=== PATIENT | male | born 2000 ===

== ENCOUNTER 2024-11-25 18:44 | Outpatient (BNV) | payer MEDICAID, SELFPAY | END 2024-12-04 08:00 | PROVIDERS: Admitting Provider Psychiatry & Neurology Psychiatry; Visit Provider Internal Medicine | DX: I45.4 Nonspecific intraventricular block (principal); R00.0 Tachycardia, unspecified | CPT/HCPCS: 93010 ==

== ENCOUNTER 2024-11-25 18:44 | Inpatient (IN) | payer OTHER, SELFPAY ==
[2024-11-25 19:34] VITALS: BP 136/81; PULSE 106; RESP 16; TEMP 37.2; O2SAT 93
--- NOTE | 2024-11-25 19:35 | PC.NURSE ---
Pt arrived on the unit at 1908 on a 12B, via stretcher. VSS, change management director done, and pt shown unit and given toiletries. Complete admission note to follow.
[2024-11-25] MEDS: traZODone HCL 50 MG TABLET PO (21:07)
[2024-11-25] MEDS: hydrOXYzine HCL 25 MG TABLET PO (21:07)
--- NOTE | 2024-11-25 22:19 | P.CONHOSP_ITS ---
History of Present Illness Data of Consult Service Date: 11/25/24 Requesting physician: Negro Strange Primary Care Provider: Unknown Physician HPI Reason for consult: Medical H/P Patient is a 24-year-old male with past medical history Bipolar II, ADHD, Autism Spectrum Disorder, acne, methamphetamine addiction with previous IV injection causing severe tachycardia and palpitations requiring hospitalization, childhood asthma, vapes nicotine, wisdom teeth removal, chronic habitual picking of his skin is being seen on M5 for medical H and P for admission. Patient offers no specific medical concerns at this time. Patient is currently working for a food truck and was attending his 1st few days of class at [facility] [facility]. Patient reports that he was taking his brother's Adderall and his mother's of Vyvanse and was transferred from a previous hospital to [facility] for further evaluation. Patient denies any issues with chest pain, shortness of breath at rest or with exertion, abdominal pain, nausea, vomiting, diarrhea or constipation. Patient is not having any flu-like symptoms. Patient denies any fever or chills. Review of Systems Review of Systems: Patient denies any chest pain, shortness of breath at rest or exertion, abdominal pain, nausea, vomiting, diarrhea or constipation. Patient reports vaping nicotine but denies need for nicotine replacement therapy. Patient denies any history of liver problems, alcohol use or illicit drug use. Patient states he was using methamphetamine IV. Patient required hospitalization at that time for palpitations and fast heart rate. Patient denies any issues with burning or pain on urination or STD symptoms. Yes all other systems are reviewed and are negative [facility] Medical History (Updated 11/25/24 @ 22:27 by REYNA David) Autism spectrum disorder Bipolar 2 disorder ADHD Asthma Cognitive capacity: Alert and orientated x3 Functional capacity: independent ambulation Pertinent family history: Mother: No current health problems on Vyvanse Surgical History [place] teeth removed Social History Household Members: Family Housing: House Do you presently have visiting nurse or other home services: No Patient Tobacco Use Status: Current everyday Tobacco user Tobacco use type: Cigarette Smoked in Last 30 Days: Yes e-Cigarette/Vaping Use: Currently Using Patient Interested in Nicotine Replacement: No Second Hand Smoke Exposure: No Have you been hit, kicked, punched, or otherwise hurt by someone within the past year? If so, by whom?: No Do you feel safe in your current relationship?: No Current Relationship Is there a partner from a previous relationship who is making you feel unsafe now?: No Are you made to feel afraid or neglected: No Advance Directives: No Advance Directives Information Provided: No Do you have a plan to hurt others: No Plan Recently lost weight without trying: Yes Eating poorly because of decreased appetite: No Nutrition Risks: No Nutritional Risk Ebola Risk: Travel/Contact With Anyone From Affected Area/s: No Has Patient Experienced Ebola Symptoms: No Meds Allergies Allergy/AdvReac Type Severity Reaction Status Date / Time No Known Allergies Allergy Verified 11/25/24 19:43 Active Medications: Current Medications Acetaminophen (Acetaminophen 325 Mg Tablet) 650 mg PO Q6H PRN PRN Reason: Headache/Pain, Scale 1-10 Al Hydroxide/Mg Hydroxide (Magnesium Hydrox/Alum Hydrox 30 Ml Oral.Susp) 30 ml PO Q6H PRN PRN Reason: Heartburn/Nausea Hydroxyzine HCl (Hydroxyzine Hcl 25 Mg Tablet) 25 mg PO Q6H PRN PRN Reason: mild anxiety Last Admin: 11/25/24 21:07 Dose: 25 mg Magnesium Hydroxide (Milk Of Magnesia 30 Ml Oral.Susp) 30 ml PO DAILY PRN PRN Reason: Constipation Nicotine Polacrilex (Nicotine Polacrilex 2 Mg Gum) 4 mg BUCCAL Q2H PRN PRN Reason: Nicotine Cravings Trazodone HCl (Trazodone Hcl 50 Mg Tablet) 50 mg PO BEDTIME MRX1 PRN PRN Reason: Insomnia Last Admin: 11/25/24 21:07 Dose: 50 mg Physical Exam Vital Signs and Narrative: Vital Signs: Last Vital Signs Temp 98.9 F 11/25/24 19:34 Pulse 106 H 11/25/24 19:34 Resp 16 11/25/24 19:34 BP 136/81 11/25/24 19:34 Pulse Ox 93 11/25/24 19:34 O2 Del Method Room Air 11/25/24 19:34 Alert and orientated X3, able to give good history. Pauses intermittently when answering questions. Neuro: CN II-X11 intact, no deficits, visual acuity intact EYES: PERRLA, pupils dilated, EOM intact, conjunctiva pink, sclera nonicteric ENT: hearing intact, no issues with swallowing, uvula midline, lips moist, nares patent no epistaxis Cardiac: S1 S2 RRR, tachy 106, no murmur, no JVD, no edema in Lower ext Pulmonary: lungs clear to auscultation B Abdominal: BS active in all 4 quadrants, no guarding, tenderness, rebounding MSK: strength 5/5 upper and lower extremities : no CVA tenderness no bladder distension Extremities: no edema in lower extremities, PT and DP pulses palpable +2 Psych: mood stable, judgement and insight fair Skin: Facial acne noted, picking dubon on skin and arms (patient actively picking during interview) Results ECG Prior ECG tracings: not available for review Assessment and Plan (1) Vaping nicotine dependence, tobacco product: Status: Acute Plan Patient is a 24-year-old male with past medical history Bipolar II, ADHD, Autism Spectrum Disorder, acne, methamphetamine addiction with previous IV injection causing severe tachycardia and palpitations requiring hospitalization, childhood asthma, vapes nicotine, wisdom teeth removal, chronic habitual pickin g of his skin admitted to M5 and seen for admission H&P. Patient has no specific medical concerns at this time. Current medical problems include: Methamphetamine use with hx of IV use -recommend EKG for baseline -vital signs stable, rhythm regular, mildly tachycardic -Will add magnesium to patient's labs -TSH ordered Acne -patient deferred need for topical benzoyl peroxide -patient should perform daily hygiene with soap and warm water. -advised patient to avoid picking his face Tobacco use/vaping -patient deferred need for nicotine replacement therapy at this time -patient counseled on the hazards associated with a being -no indication for chest x-ray at this time Habitual picking of the skin -no obvious infectious process involving lesions on face and arms. -monitor for infection, reconsult hospitalist if needed -can use bacitracin topically, avoid contact with the eyes Childhood asthma -patient has not had symptoms for years -no indication for medical treatment at this time -if patient exhibits any symptoms including wheezing or shortness of breath at rest or with exertion, please reconsult hospitalists as needed Patient offered no further medical history or concerns. Hospitalist will currently sign off. We appreciate this consultation. Please reconsult hospitalist with any medical concerns that may arise.
--- NOTE | 2024-11-26 01:47 | PC.ADMIT ---
Pt is a 24 yo male admitted on a CV from [facility] for treatment of psychosis. Per crisis report, Pt was reported missing by family and was found in garage. Mother reported that Pt has been paranoid, feels others are out to get him as well as the police. Pt reported to EMS and nursing staff that he cannot stop looking at pictures of young girls. Pt has been receiving ECT for depression. Per unit admission, Pt was calm and cooperative with the assessment. He denies SI/HI/AV/VH. Pt has HX of Methamphetamine use disorder and psychosis. Toxicology was positive for Amphetamines and Marijuana. Pt reportedly does not wish to take antipsychotics but requested for Zyprexa from RN during unit assessment. Feliciano reported to RN that he looks at child porn, knows it's wrong and has never touch a child. But that is part of the reason he is getting help. Safety/skin check was unremarkable, v/s and admission paper work done. Pt signed/filled some release of information, understanding of valuable, but yet to fill menu and my contacts form. Treatment plans and safety tools initiated but yet to be signed. Hospitalist contacted for consultation. Pt feels safe on the unit.
[2024-11-26 07:47] VITALS: BP 100/59; PULSE 65; TEMP 36.1; O2SAT 98
--- NOTE | 2024-11-26 09:07 | HO.PSYADMNOT ---
HPI Date of Service: 11/26/24 Chief Complaint: Unspecified Psychosis Sources of Information: patient interviewed, chart reviewed and crisis/core team assessment reviewed HPI Subjective Notes: Corley Warning and Conditional Voluntary Healthcare Proxy: No Guardianship: No Medical Problems Affecting Mental Status: No Narrative: Feliciano is a 24-year-old white, single, male who lives with his parents.. He was taken to [facility] through an ambulance. He is undergoing ECT treatment with some memory problems. He states that the CT has been quite helpful with his depression and anxiety. He has received 18 treatments and the plan was to continue with weekly. He has history of methamphetamine use disorder with no recent use . Around being brought to the emergency room he had used 100 mg of his brothers Adderall and was missing for 3-1/2 hours and eventually was found in the garage, having soiled himself. He does have history of pervasive paranoia, delusions. He has ideations of people being after him. His mother had stated that he believes that her is ?bugged?.. He also has history of looking at young girls pictures on the Internet. He has not acted on these preoccupations and desires. He is not currently on any psychotropic medications but in the past he has been on Wellbutrin, Vraylar, Provigil, Zyprexa, Zoloft, Topamax. Current medications were reviewed and reconciled. He has not been taking the Vraylar but agreed to take olanzapine 5 mg nightly. Past Psychiatric History: Several psychiatric hospitalizations, the last was about 2 years ago Medical Evaluation Reviewed: Yes Elevated liver enzymes having been previously within normal range. Tachycardia is secondary to 100 mg of Adderall [facility] Medical History (Updated 11/26/24 @ 09:15 by Sherman Tuttle MD) Autism spectrum disorder Bipolar 2 disorder ADHD Asthma Surgical History [place] teeth removed Family History: Psychosis in his biological father Social History: Feliciano is 1 of 2 siblings. His parents were when he was 8. He grew up with his mother but had regular contact with his father. He denies any history of abuse. He has had 2 years of college and is currently in college. Denies any history of abuse. Currently he lives at home with his mother and brother. Substance History: Methamphetamine use disorder Trauma History: None known Diagnostics Vital Signs (24Hr): Vital Signs - 24 hr 11/25/24 19:34 11/26/24 07:47 Temperature 98.9 F 96.9 F Pulse Rate 106 H 65 Respiratory Rate 16 Blood Pressure 136/81 100/59 L Pulse Oximetry 93 98 Oxygen Delivery Method Room Air Room Air Labs 11/26/24 08:40 Meds/Allergies Meds Home Medications ?Medication ?Instructions ?Recorded ?Confirmed ?Type bupropion HCl 300 mg 24 hr tablet, 300 mg PO QAM 11/26/24 11/26/24 History extended release cariprazine 1.5 mg capsule 1.5 mg PO DAILY 11/26/24 11/26/24 History (Vraylar) olanzapine 5 mg tablet 5 mg PO BEDTIME depressive disorder 11/26/24 11/26/24 History sertraline 100 mg tablet 200 mg PO DAILY 11/26/24 11/26/24 History topiramate 50 mg tablet 50 mg PO DAILY 11/26/24 11/26/24 History Allergies Allergies Allergy/AdvReac Type Severity Reaction Status Date / Time No Known Allergies Allergy Verified 11/25/24 19:43 Mental Status Exam Mental Status Exam Narrative: Limb was seen the day after his admission. He is alert, oriented and pleasant. Normal speech. Little eye contact. Affect is appropriate and contained. No acute signs of psychosis but admits openly about his paranoia and delusions. Denies AVH but has reported AVH to his mother previously. He denies SI/HI. Cognitively he is intact. Judgment is intact. He is able to move his limbs. No gait abnormalities. Assessment & Plan Assessment & Plan (1) Bipolar 2 disorder: Status: Acute Code(s): F31.81 - Bipolar II disorder (2) Major depression, recurrent: Status: Acute Code(s): F33.9 - Major depressive disorder, recurrent, unspecified Plan 24-year-old young man who was admitted for safety and stabilization with increase level of paranoia and depression. He is currently undergoing ECT treatment. Current medications were reconciled and ordered.. He will meet with his treatment team on 11/28/24. Contacts to be made with his treaters. Patient educated on: diagnosis, medication risk/benefits and substance abuse Reason for continued inpatient stay Substantial Risk for: harm to self and rapid decompensation Statement Statement: I have reviewed the history and physical and performed a pertinent examination on my patient. No changes have occurred unless specified. If the History and Physical was not performed prior to admission, the Hospitalist's service will be consulted for completing the admission physical. Time Spent With Patient Time: Total time managing care of this patient today ____ minutes.
[2024-11-26 09:19] LABS: Estimated Average Glucose 108 mg/dL; Hemoglobin A1C 127.7352 umol/L; Hemoglobin A1c % 5.4 % (<6.0); Total Hemoglobin (HGBA1C) 3648.7925 umol/L
[2024-11-26 09:25] LABS: Alanine Aminotransferase 62 U/L (0-40); Albumin Level 4.3 g/dL (3.5-5.0); Alkaline Phosphatase 58 U/L (39-117); Anion Gap 13 (12-20); Aspartate Amino Transferase 130 U/L (5-37); Bilirubin Total 0.3 mg/dL (0.0-1.0); Blood Urea Nitrogen 16 mg/dL (9-16); Calcium 9.3 mg/dL (8.4-10.2); Carbon Dioxide 26 mmol/L (22-29); Chloride 108 mmol/L (96-108); Cholesterol 206 mg/dL (<200); Estimated Glomerular Filt Rate > 60; Glucose Random 93 mg/dL (60-115); HDL Cholesterol 57 mg/dL (>40); LDL Cholesterol Calculated 138 mg/dL (<100); Magnesium 2.2 mg/dL (1.6-2.6); Sodium 143 mmol/L (135-145); Total Protein 6.5 g/dL (6.5-8.0); Triglycerides 58 mg/dL (<150)
[2024-11-26 09:40] LABS: Thyroid Stimulating Hormone 1.29 uIU/mL (0.32-4.0)
[2024-11-26 09:51] LABS: Folate 3.9 ng/mL (> or = 4.0); Vitamin B12 731 pg/mL (200-900)
[2024-11-26] MEDS: buPROPion HCl XL 300 MG TAB.ER.24H PO (09:56)
[2024-11-26] MEDS: Sertraline HCL 100 MG TABLET 200 MG PO (09:57)
[2024-11-26] MEDS: hydrOXYzine HCL 25 MG TABLET PO (18:16)
[2024-11-26] MEDS: Acetaminophen 325 MG TABLET 650 MG PO (18:16)
[2024-11-26 20:00] VITALS: BP 113/61; PULSE 97; TEMP 2.6; TEMP 36.7; O2SAT 98
[2024-11-26] MEDS: OLANZapine 5 MG TABLET PO (21:05)
[2024-11-26] MEDS: traZODone HCL 50 MG TABLET PO (21:05)
[2024-11-27 08:27] VITALS: BP 102/55; PULSE 67; TEMP 36.4; O2SAT 96
--- NOTE | 2024-11-27 09:20 | HO.PSYCHPN ---
Subjective Subjective Date of Service: 11/27/24 Reason For Visit: Unspecified Psychosis Subjective Notes: Conditional Voluntary Interim History: Patient was seen and discussed in rounds today. Records and plans were reviewed. He has settled in and has been stable. No inappropriate behaviors. He is medication compliant. Questions about his medications discussed. Eating and sleeping well. No SI. No changes were made today Review of Systems Review of Systems Yes all other systems are reviewed and are negative Mental Status Exam Mental Status Exam Narrative: He is alert, oriented and pleasant. Normal speech. Little eye contact. Affect is appropriate and contained. No acute signs of psychosis but admits openly about his paranoia and delusions. Denies AVH but has reported AVH to his mother previously. He denies SI/HI. Cognitively he is intact. Judgment is intact. He is able to move his limbs. No gait abnormalities. Diagnostics Vital Signs (24Hr): Vital Signs - 24 hr 11/26/24 20:00 11/27/24 08:27 Temperature 36.7 F L 97.5 F Pulse Rate 97 67 Blood Pressure 113/61 102/55 L Pulse Oximetry 98 96 Oxygen Delivery Method Room Air Room Air Labs 11/26/24 08:40 Labs: Laboratory Results - last 48 hr 11/26/24 08:40 Sodium 143 Potassium 4.0 Chloride 108 Carbon Dioxide 26 Anion Gap 13 BUN 16 Creatinine 0.96 Estim Creat Clear Calc TNP Estimated GFR > 60 Random Glucose 93 Estimat Average Glucose 108 Hemoglobin A1c % 5.4 Calcium 9.3 Magnesium 2.2 Total Bilirubin 0.3 AST 130 H ALT 62 H Alkaline Phosphatase 58 Total Protein 6.5 Albumin 4.3 Triglycerides 58 Cholesterol 206 H LDL Cholesterol, Calc 138 H HDL Cholesterol 57 Vitamin B12 731 Folate 3.9 L TSH 1.29 Medications Medications Current Medications Acetaminophen (Acetaminophen 325 Mg Tablet) 650 mg PO Q6H PRN PRN Reason: Headache/Pain, Scale 1-10 Last Admin: 11/26/24 18:16 Dose: 650 mg Al Hydroxide/Mg Hydroxide (Magnesium Hydrox/Alum Hydrox 30 Ml Oral.Susp) 30 ml PO Q6H PRN PRN Reason: Heartburn/Nausea Bupropion HCl (Bupropion Hcl Xl 300 Mg Tab.Er.24h) 300 mg PO DAILY CHIKI Last Admin: 11/26/24 09:56 Dose: 300 mg Hydroxyzine HCl (Hydroxyzine Hcl 25 Mg Tablet) 25 mg PO Q6H PRN PRN Reason: mild anxiety Last Admin: 11/26/24 18:16 Dose: 25 mg Magnesium Hydroxide (Milk Of Magnesia 30 Ml Oral.Susp) 30 ml PO DAILY PRN PRN Reason: Constipation Nicotine Polacrilex (Nicotine Polacrilex 2 Mg Gum) 4 mg BUCCAL Q2H PRN PRN Reason: Nicotine Cravings Olanzapine (Olanzapine 5 Mg Tablet) 5 mg PO BEDTIME CHIKI Last Admin: 11/26/24 21:05 Dose: 5 mg Sertraline HCl (Sertraline Hcl 100 Mg Tablet) 200 mg PO DAILY CHIKI Last Admin: 11/26/24 09:57 Dose: 200 mg Topiramate (Topiramate 25 Mg Tablet) 50 mg PO DAILY CHIKI Trazodone HCl (Trazodone Hcl 50 Mg Tablet) 50 mg PO BEDTIME MRX1 PRN PRN Reason: Insomnia Last Admin: 11/26/24 21:05 Dose: 50 mg Allergies Allergies Allergy/AdvReac Type Severity Reaction Status Date / Time No Known Allergies Allergy Verified 11/25/24 19:43 Assessment & Plan Assessment & Plan (1) Bipolar 2 disorder: Status: Acute Code(s): F31.81 - Bipolar II disorder (2) Major depression, recurrent: Status: Acute Code(s): F33.9 - Major depressive disorder, recurrent, unspecified Plan 24-year-old young man who was admitted for safety and stabilization with increase level of paranoia and depression. He is currently undergoing ECT treatment. Current medications were reconciled and ordered.. He will meet with his treatment team on 11/28/24. Contacts to be made with his treaters. 11/27: Continue current regimen and plans. Patient educated on: medication risk/benefits Reason for continued inpatient stay Substantial Risk for: med/psych decompensation Time Spent With Patient Time: Total time managing care of this patient today ____ minutes.
[2024-11-27] MEDS: Sertraline HCL 100 MG TABLET 200 MG PO (09:23)
[2024-11-27] MEDS: Topiramate 25 MG TABLET 50 MG PO (09:23)
[2024-11-27] MEDS: buPROPion HCl XL 300 MG TAB.ER.24H PO (09:23)
[2024-11-27] MEDS: Nicotine Polacrilex 2 MG GUM 4 MG BUCCAL (09:52)
[2024-11-27] MEDS: Milk of Magnesia 30 ML ORAL.SUSP PO (19:11)
[2024-11-27 20:00] VITALS: BP 136/74; PULSE 79; TEMP 36.5; O2SAT 99
[2024-11-27] MEDS: OLANZapine 5 MG TABLET PO (20:21)
[2024-11-28] MEDS: Sertraline HCL 100 MG TABLET 200 MG PO (08:40)
[2024-11-28] MEDS: Topiramate 25 MG TABLET 50 MG PO (08:40)
[2024-11-28] MEDS: buPROPion HCl XL 300 MG TAB.ER.24H PO (08:40)
[2024-11-28 09:09] VITALS: BP 118/65; PULSE 68; RESP 17; TEMP 36.6; O2SAT 99
[2024-11-28] MEDS: OLANZapine 5 MG TABLET PO ×2 (09:25→17:49)
[2024-11-28 20:00] VITALS: BP 142/94; PULSE 112; TEMP 37; O2SAT 98
[2024-11-28] MEDS: OLANZapine 10 MG TABLET PO (20:13)
[2024-11-28] MEDS: Nicotine Polacrilex 2 MG GUM 4 MG BUCCAL (20:44)
--- NOTE | 2024-11-28 22:07 | HO.PSYCHPN ---
Subjective Subjective Date of Service: 11/28/24 Reason For Visit: Unspecified Psychosis Interim History: Met with patient; discussed with team Patient shared extensively about struggles with auditory hallucinations and paranoid ideations. He says he gets paranoid that people are trying to kill him, that his food is poisoned, but parasites in him or blast him with radiation... he does not really think it is paranoia and thinks it is true however he also knows that he has psychotic illness that causes his mind play tricks on him. Patient says he has AH for a long time but he is mostly able to ignore it. He was getting ECT for depression and was being tapered down to where he was getting it twice a week for the past 2 or 3 weeks. He thinks it has helped considerably with his depression. Patient said his treatment got derailed because he is addicted to amphetamines and although he prefers methamphetamine, he will take his family's Adderall and he chance he gets which happened this past week; patient says that it causes him to get a sexual high. He hates this about himself, hates his addiction and very much wants to be sober. Denies other drug or alcohol use. Patient lists the medications he has tried which include Vraylar, Latuda, Abilify, Zyprexa, Haldol, risperidone, Invega/Invega Sustenna, Seroquel, Thorazine. He is not sure the efficacy. Discussed medication options including Clozaril, reviewing risks/side effects; patient eager to try. Denies any history of manic type episodes or behaviors. Patient discussed onset of thoughts paraphilia; he patient stress thoughts only which are ego-dystonic Mental Status Exam Mental Status Exam Narrative: Pt is alert and oriented; behavior is cooperative, calm; patient is not in distress; dressed in casual attire with unkempt hair but adequate hygiene; mood is described as anxious and affect anxious; eye contact avoidant; Speech is a little fast but not pressured; normal volume and prosody; no psychomotor agitation/retardation present; thought process is organized and goal directed; Thought content is on tx, as well as paranoid delusions; otherwise pertinent to relevant topics; denies any SI/HI. Positive AH. Patients insight and judgment impaired Diagnostics Vital Signs (24Hr): Vital Signs - 24 hr 11/28/24 09:09 Temperature 97.8 F Pulse Rate 68 Respiratory Rate 17 Blood Pressure 118/65 Pulse Oximetry 99 Oxygen Delivery Method Room Air Labs 11/29/24 18:09 11/26/24 08:40 Medications Medications Current Medications Acetaminophen (Acetaminophen 325 Mg Tablet) 650 mg PO Q6H PRN PRN Reason: Headache/Pain, Scale 1-10 Last Admin: 11/26/24 18:16 Dose: 650 mg Al Hydroxide/Mg Hydroxide (Magnesium Hydrox/Alum Hydrox 30 Ml Oral.Susp) 30 ml PO Q6H PRN PRN Reason: Heartburn/Nausea Bupropion HCl (Bupropion Hcl Xl 300 Mg Tab.Er.24h) 300 mg PO DAILY [facility] Last Admin: 11/28/24 08:40 Dose: 300 mg Hydroxyzine HCl (Hydroxyzine Hcl 25 Mg Tablet) 25 mg PO Q6H PRN PRN Reason: mild anxiety Last Admin: 11/26/24 18:16 Dose: 25 mg Magnesium Hydroxide (Milk Of Magnesia 30 Ml Oral.Susp) 30 ml PO DAILY PRN PRN Reason: Constipation Last Admin: 11/27/24 19:11 Dose: 30 ml Nicotine Polacrilex (Nicotine Polacrilex 2 Mg Gum) 4 mg BUCCAL Q2H PRN PRN Reason: Nicotine Cravings Last Admin: 11/28/24 20:44 Dose: 4 mg Olanzapine (Olanzapine 5 Mg Tablet) 5 mg PO TID PRN PRN Reason: agitation Last Admin: 11/28/24 17:49 Dose: 5 mg Olanzapine (Olanzapine 10 Mg Tablet) 10 mg PO BID [facility] Last Admin: 11/28/24 20:13 Dose: 10 mg Olanzapine (Olanzapine 5 Mg Tablet) 5 mg PO TID PRN PRN Reason: agitation/angst/AH/paranoia Sertraline HCl (Sertraline Hcl 100 Mg Tablet) 200 mg PO DAILY [facility] Last Admin: 11/28/24 08:40 Dose: 200 mg Topiramate (Topiramate 25 Mg Tablet) 50 mg PO DAILY [facility] Last Admin: 11/28/24 08:40 Dose: 50 mg Trazodone HCl (Trazodone Hcl 50 Mg Tablet) 50 mg PO BEDTIME MRX1 PRN PRN Reason: Insomnia Last Admin: 11/26/24 21:05 Dose: 50 mg Allergies Allergies Allergy/AdvReac Type Severity Reaction Status Date / Time No Known Allergies Allergy Verified 11/25/24 19:43 Assessment & Plan Assessment & Plan (1) Schizoaffective disorder, depressive type: Status: Acute Code(s): F25.1 - Schizoaffective disorder, depressive type (2) ADHD: Status: Acute Code(s): F90.9 - Attention-deficit hyperactivity disorder, unspecified type (3) Autism spectrum disorder: Status: Acute Code(s): F84.0 - Autistic disorder Plan 24-year-old young man who was admitted for safety and stabilization with increase level of paranoia and depression. He is currently undergoing ECT treatment. Current medications were reconciled and ordered.. He will meet with his treatment team on 11/28/24. Contacts to be made with his treaters. HOSPITAL COURSE: 11/27: Continue current regimen and plans. 11/28 Patient shared extensively about struggles with auditory hallucinations and paranoid ideations. He says he gets paranoid that people are trying to kill him, that his food is poisoned, but parasites in him or blast him with radiation... he does not really think it is paranoia and thinks it is true however he also knows that he has psychotic illness that causes his mind play tricks on him. Patient says he has AH for a long time but he is mostly able to ignore it. He was getting ECT for depression and was being tapered down to where he was getting it twice a week for the past 2 or 3 weeks. He thinks it has helped considerably with his depression. Patient said his treatment got derailed because he is addicted to amphetamines and although he prefers methamphetamine, he will take his family's Adderall and he chance he gets which happened this past week; patient says that it causes him to get a sexual high. He hates this about himself, hates his addiction and very much wants to be sober. Denies other drug or alcohol use. Patient lists the medications he has tried which include Vraylar, Latuda, Abilify, Zyprexa, Haldol, risperidone, Invega/Invega Sustenna, Seroquel, Thorazine. He is not sure the efficacy. Currently patient asked for Zyprexa to be increased saying that it seems to be helping his mind think more clearly; he felt Haldol lowered AH but did not take way paranoia and caused emotional blunting Discussed medication options including Clozaril, reviewing risks/side effects; patient eager to try. Patient has ADHD Patient has autism spectrum disorder Patient has severe depressive episodes and has benefitted from ECT Denies any history of manic type episodes or behaviors. Patient discussed onset of thoughts paraphilia; he patient stress thoughts only which are ego-dystonic Plan: CV Q 15 minute checks Increase Zyprexa to 10 mg b.i.d. Add Zyprexa as a p.r.n. at patient's request Continue bupropion Continue Zoloft Will consider Clozaril Will get collateral Patient educated on: diagnosis, medication risk/benefits, substance abuse and therapeutic strategies Informed Consent: understands and further education needed Reason for continued inpatient stay Substantial Risk for: rapid decompensation Time Spent With Patient Time: Total time managing care of this patient today ____ minutes.
[2024-11-29 08:00] VITALS: BP 116/68; PULSE 64; TEMP 36.9; O2SAT 99
[2024-11-29] MEDS: Sertraline HCL 100 MG TABLET 200 MG PO (08:30)
[2024-11-29] MEDS: OLANZapine 10 MG TABLET PO ×2 (08:31→20:39)
[2024-11-29] MEDS: buPROPion HCl XL 300 MG TAB.ER.24H PO (08:31)
[2024-11-29] MEDS: Topiramate 25 MG TABLET 50 MG PO (08:31)
[2024-11-29] MEDS: Nicotine Polacrilex 2 MG GUM 4 MG BUCCAL (08:56)
--- NOTE | 2024-11-29 09:40 | HO.PSYCHPN ---
Subjective Subjective Date of Service: 11/29/24 Reason For Visit: Unspecified Psychosis Interim History: Met with patient; discussed with team very paranoid; thinks peer gave him syphyillis; insists to nursing he has parasites in his stool and brings sample in a cup to nursing desk; very anxious. Agrees to start Clozapine Mental Status Exam Mental Status Exam Narrative: Pt is alert and oriented; behavior is anxious and agitated due to paranoid ideations; patient is not in distress; dressed in casual attire with unkempt hair but adequate hygiene; mood is described as distressed and affect anxious; eye contact avoidant; Speech is a little fast but not pressured; normal volume and prosody; psychomotor agitation present; thought process is organized and goal directed; Thought content is on paranoid delusions; otherwise pertinent to relevant topics; denies any SI/HI. Positive AH. Patients insight and judgment impaired Diagnostics Vital Signs (24Hr): Vital Signs - 24 hr 11/28/24 20:00 Temperature 98.6 F Pulse Rate 112 H Blood Pressure 142/94 H Pulse Oximetry 98 Oxygen Delivery Method Room Air Labs 11/29/24 18:09 11/26/24 08:40 Medications Medications Current Medications Acetaminophen (Acetaminophen 325 Mg Tablet) 650 mg PO Q6H PRN PRN Reason: Headache/Pain, Scale 1-10 Last Admin: 11/26/24 18:16 Dose: 650 mg Al Hydroxide/Mg Hydroxide (Magnesium Hydrox/Alum Hydrox 30 Ml Oral.Susp) 30 ml PO Q6H PRN PRN Reason: Heartburn/Nausea Bupropion HCl (Bupropion Hcl Xl 300 Mg Tab.Er.24h) 300 mg PO DAILY [facility] Last Admin: 11/29/24 08:31 Dose: 300 mg Hydroxyzine HCl (Hydroxyzine Hcl 25 Mg Tablet) 25 mg PO Q6H PRN PRN Reason: mild anxiety Last Admin: 11/26/24 18:16 Dose: 25 mg Magnesium Hydroxide (Milk Of Magnesia 30 Ml Oral.Susp) 30 ml PO DAILY PRN PRN Reason: Constipation Last Admin: 11/27/24 19:11 Dose: 30 ml Nicotine Polacrilex (Nicotine Polacrilex 2 Mg Gum) 4 mg BUCCAL Q2H PRN PRN Reason: Nicotine Cravings Last Admin: 11/29/24 08:56 Dose: 4 mg Olanzapine (Olanzapine 5 Mg Tablet) 5 mg PO TID PRN PRN Reason: agitation Last Admin: 11/28/24 17:49 Dose: 5 mg Olanzapine (Olanzapine 10 Mg Tablet) 10 mg PO BID [facility] Last Admin: 11/29/24 08:31 Dose: 10 mg Olanzapine (Olanzapine 5 Mg Tablet) 5 mg PO TID PRN PRN Reason: agitation/angst/AH/paranoia Sertraline HCl (Sertraline Hcl 100 Mg Tablet) 200 mg PO DAILY [facility] Last Admin: 11/29/24 08:30 Dose: 200 mg Topiramate (Topiramate 25 Mg Tablet) 50 mg PO DAILY [facility] Last Admin: 11/29/24 08:31 Dose: 50 mg Trazodone HCl (Trazodone Hcl 50 Mg Tablet) 50 mg PO BEDTIME MRX1 PRN PRN Reason: Insomnia Last Admin: 11/26/24 21:05 Dose: 50 mg Allergies Allergies Allergy/AdvReac Type Severity Reaction Status Date / Time No Known Allergies Allergy Verified 11/25/24 19:43 Assessment & Plan Assessment & Plan (1) Schizoaffective disorder, depressive type: Status: Acute Code(s): F25.1 - Schizoaffective disorder, depressive type (2) Amphetamine use disorder, severe: Status: Acute Code(s): F15.20 - Other stimulant dependence, uncomplicated (3) ADHD: Status: Acute Code(s): F90.9 - Attention-deficit hyperactivity disorder, unspecified type (4) Autism spectrum disorder: Status: Acute Code(s): F84.0 - Autistic disorder Plan 24-year-old young man who was admitted for safety and stabilization with increase level of paranoia and depression. He is currently undergoing ECT treatment. Current medications were reconciled and ordered.. He will meet with his treatment team on 11/28/24. Contacts to be made with his treaters. HOSPITAL COURSE: 11/27: Continue current regimen and plans. 11/28 Patient shared extensively about struggles with auditory hallucinations and paranoid ideations. He says he gets paranoid that people are trying to kill him, that his food is poisoned, but parasites in him or blast him with radiation... he does not really think it is paranoia and thinks it is true however he also knows that he has psychotic illness that causes his mind play tricks on him. Patient says he has AH for a long time but he is mostly able to ignore it. He was getting ECT for depression and was being tapered down to where he was getting it twice a week for the past 2 or 3 weeks. He thinks it has helped considerably with his depression. Patient said his treatment got derailed because he is addicted to amphetamines and although he prefers methamphetamine, he will take his family's Adderall and he chance he gets which happened this past week; patient says that it causes him to get a sexual high. He hates this about himself, hates his addiction and very much wants to be sober. Denies other drug or alcohol use. Patient lists the medications he has tried which include Vraylar, Latuda, Abilify, Zyprexa, Haldol, risperidone, Invega/Invega Sustenna, Seroquel, Thorazine. He is not sure the efficacy. Currently patient asked for Zyprexa to be increased saying that it seems to be helping his mind think more clearly; he felt Haldol lowered AH but did not take way paranoia and caused emotional blunting Discussed medication options including Clozaril, reviewing risks/side effects; patient eager to try. Patient has ADHD Patient has autism spectrum disorder Patient has severe depressive episodes and has benefitted from ECT Denies any history of manic type episodes or behaviors. Patient discussed onset of thoughts paraphilia; he patient stress thoughts only which are ego-dystonic 6/3 very paranoid; thinks peer gave him syphyillis; insists to nursing he has parasites in his stool and brings sample in a cup to nursing desk; very anxious. Agrees to start Clozapine; if effective will likely taper off and dc zyprexa Plan: CV Q 15 minute checks Start Clozapine (discussed risks/side-effects and pt wants med trial) continue Zyprexa to 10 mg b.i.d. Add Zyprexa as a p.r.n. at patient's request Continue bupropion Continue Zoloft Will get collateral Patient educated on: diagnosis and medication risk/benefits Informed Consent: understands, does not understand and further education needed Reason for continued inpatient stay Substantial Risk for: inability to function and rapid decompensation Time Spent With Patient Time: Total time managing care of this patient today ____ minutes.
[2024-11-29] MEDS: OLANZapine 5 MG TABLET PO (13:08)
[2024-11-29 18:16] LABS: MANUAL DIFF FLAG NO
[2024-11-29 18:25] LABS: Basophils Absolute Auto 0.1 X10*3/uL (0.0-0.2); Eosinophils Absolute Auto 0.2 X10*3/uL (0.0-0.4); Eosinophils Percent Auto 3.6 % (0-4); Hematocrit 42.6 % (42.0-52.0); Hemoglobin 14.2 g/dl (14.0-18.0); Imm Gran Abs Auto 0.05 X10*3/uL (0.00-0.03); Imm Gran Pct Auto 0.7 % (0.0-0.4); Lymphocytes Percent Auto 30.3 % (20-40); Mean Corpuscular HGB Conc 33.3 g/dl (31.0-36.0); Mean Corpuscular Hemoglobin 29.5 pg (27.0-33.0); Mean Corpuscular Volume 88.4 fL (80.0-98.0); Mean Platelet Volume 9.1 fL (9.4-12.4); Monocytes Absolute Auto 0.6 X10*3/uL (0.1-1.2); Monocytes Percent Auto 8.2 % (2-11); Neutrophils Absolute Auto 3.8 x10*3/uL (2.0-8.3); Neutrophils Percent Auto 56.2 % (45-73); Platelet Count 291 X10*3/uL (160-400); Red Blood Count 4.82 X10*6/uL (4.60-5.80); Red Cell Distribution Width 12.5 % (11.0-16.0); White Blood Count 6.7 X10*3/uL (4.8-10.8)
[2024-11-29 19:45] VITALS: BP 112/56; PULSE 123; RESP 14; TEMP 36.2; O2SAT 96
[2024-11-29] MEDS: cloZAPine 25 MG TABLET PO (20:40)
[2024-11-30 08:00] VITALS: BP 114/74; PULSE 98; TEMP 36.9; O2SAT 100
[2024-11-30] MEDS: buPROPion HCl XL 300 MG TAB.ER.24H PO (09:04)
[2024-11-30] MEDS: Topiramate 25 MG TABLET 50 MG PO (09:04)
[2024-11-30] MEDS: Sertraline HCL 100 MG TABLET 200 MG PO (09:04)
[2024-11-30] MEDS: OLANZapine 10 MG TABLET PO ×2 (09:04→20:53)
[2024-11-30] MEDS: Nicotine Polacrilex 2 MG GUM 4 MG BUCCAL ×2 (09:06→12:35)
[2024-11-30] MEDS: Acetaminophen 325 MG TABLET 650 MG PO (14:06)
[2024-11-30] MEDS: OLANZapine 5 MG TABLET PO (14:06)
[2024-11-30 20:00] VITALS: BP 130/77; PULSE 92; RESP 14; TEMP 36.4; O2SAT 97
[2024-11-30] MEDS: cloZAPine 25 MG TABLET 50 MG PO (20:54)
[2024-12-01 08:00] VITALS: BP 112/62; PULSE 91; RESP 16; TEMP 36.8; O2SAT 98
[2024-12-01] MEDS: Sertraline HCL 100 MG TABLET 200 MG PO (09:02)
[2024-12-01] MEDS: buPROPion HCl XL 300 MG TAB.ER.24H PO (09:03)
[2024-12-01] MEDS: OLANZapine 10 MG TABLET PO ×2 (09:03→21:30)
[2024-12-01] MEDS: Topiramate 25 MG TABLET 50 MG PO (09:03)
[2024-12-01] MEDS: Nicotine Polacrilex 2 MG GUM 4 MG BUCCAL ×2 (09:21→21:30)
--- NOTE | 2024-12-01 13:08 | HO.PSYCHPN ---
Subjective Subjective Date of Service: 11/30/24 Reason For Visit: Unspecified Psychosis Interim History: Late entry progress note for patient seen on 11/30; discussed with team remains paranoid about parasites in stool and shows promotion writer stool sample he's been saving (no parasites observed). Pt frustrated not believed; talks about hx of paranoia coming and going, not being believed, doubting himself...Says no longer thinks he was given syphilis though. Discussed meds and pt agrees to titrate clozapine. Mental Status Exam Mental Status Exam Narrative: Pt is alert and oriented; behavior is more calm; keeping to himself; patient is not in distress; dressed in casual attire with unkempt hair but adequate hygiene; mood is described as ok and affect more calm; eye contact avoidant; Speech is normal rate, volume and prosody; no psychomotor agitation present; thought process is organized and goal directed; Thought content is on paranoid delusions; otherwise pertinent to relevant topics; denies any SI/HI. Positive AH. Patients insight and judgment impaired Diagnostics Vital Signs (24Hr): Vital Signs - 24 hr 11/30/24 20:00 12/01/24 08:00 Temperature 97.5 F 98.2 F Pulse Rate 92 91 Respiratory Rate 14 16 Blood Pressure 130/77 112/62 Pulse Oximetry 97 98 Oxygen Delivery Method Room Air Labs 11/29/24 18:09 11/26/24 08:40 Labs: Laboratory Results - last 48 hr 11/29/24 18:09 WBC 6.7 RBC 4.82 Hgb 14.2 Hct 42.6 MCV 88.4 MCH 29.5 MCHC 33.3 RDW 12.5 Plt Count 291 MPV 9.1 L Immature Gran % (Auto) 0.7 H Neut % (Auto) 56.2 Lymph % (Auto) 30.3 Rankin % (Auto) 8.2 Eos % (Auto) 3.6 Baso % (Auto) 1.0 Lymph # (Auto) 2.0 Rankin # (Auto) 0.6 Eos # (Auto) 0.2 Baso # (Auto) 0.1 Abs Immat Gran (auto) 0.05 H Absolute Neuts (auto) 3.8 Absolute Nucleated RBC 0.000 Nucleated RBC % (auto) 0.0 Medications Medications Current Medications Acetaminophen (Acetaminophen 325 Mg Tablet) 650 mg PO Q6H PRN PRN Reason: Headache/Pain, Scale 1-10 Last Admin: 11/30/24 14:06 Dose: 650 mg Al Hydroxide/Mg Hydroxide (Magnesium Hydrox/Alum Hydrox 30 Ml Oral.Susp) 30 ml PO Q6H PRN PRN Reason: Heartburn/Nausea Bupropion HCl (Bupropion Hcl Xl 300 Mg Tab.Er.24h) 300 mg PO DAILY [facility] Last Admin: 12/01/24 09:03 Dose: 300 mg Clozapine (Clozapine 25 Mg Tablet) 75 mg PO BEDTIME [facility] Hydroxyzine HCl (Hydroxyzine Hcl 25 Mg Tablet) 25 mg PO Q6H PRN PRN Reason: mild anxiety Last Admin: 11/26/24 18:16 Dose: 25 mg Magnesium Hydroxide (Milk Of Magnesia 30 Ml Oral.Susp) 30 ml PO DAILY PRN PRN Reason: Constipation Last Admin: 11/27/24 19:11 Dose: 30 ml Nicotine Polacrilex (Nicotine Polacrilex 2 Mg Gum) 4 mg BUCCAL Q2H PRN PRN Reason: Nicotine Cravings Last Admin: 12/01/24 09:21 Dose: 4 mg Olanzapine (Olanzapine 10 Mg Tablet) 10 mg PO BID [facility] Last Admin: 12/01/24 09:03 Dose: 10 mg Olanzapine (Olanzapine 5 Mg Tablet) 5 mg PO TID PRN PRN Reason: agitation/angst/AH/paranoia Sertraline HCl (Sertraline Hcl 100 Mg Tablet) 200 mg PO DAILY [facility] Last Admin: 12/01/24 09:02 Dose: 200 mg Topiramate (Topiramate 25 Mg Tablet) 50 mg PO DAILY [facility] Last Admin: 12/01/24 09:03 Dose: 50 mg Trazodone HCl (Trazodone Hcl 50 Mg Tablet) 50 mg PO BEDTIME MRX1 PRN PRN Reason: Insomnia Last Admin: 11/26/24 21:05 Dose: 50 mg Allergies Allergies Allergy/AdvReac Type Severity Reaction Status Date / Time No Known Allergies Allergy Verified 11/25/24 19:43 Assessment & Plan Assessment & Plan (1) Schizoaffective disorder, depressive type: Status: Acute Code(s): F25.1 - Schizoaffective disorder, depressive type (2) ADHD: Status: Acute Code(s): F90.9 - Attention-deficit hyperactivity disorder, unspecified type (3) Autism spectrum disorder: Status: Acute Code(s): F84.0 - Autistic disorder (4) Amphetamine use disorder, severe: Status: Acute Code(s): F15.20 - Other stimulant dependence, uncomplicated Plan 24-year-old young man who was admitted for safety and stabilization with increase level of paranoia in the face of Adderall abuse. HOSPITAL COURSE: 11/27: Continue current regimen and plans. 11/28 Patient shared extensively about struggles with auditory hallucinations and paranoid ideations. He says he gets paranoid that people are trying to kill him, that his food is poisoned, but parasites in him or blast him with radiation... he does not really think it is paranoia and thinks it is true however he also knows that he has psychotic illness that causes his mind play tricks on him. Patient says he has AH for a long time but he is mostly able to ignore it. He was getting ECT for depression and was being tapered down to where he was getting it twice a week for the past 2 or 3 weeks. He thinks it has helped considerably with his depression. Patient said his treatment got derailed because he is addicted to amphetamines and although he prefers methamphetamine, he will take his family's Adderall and he chance he gets which happened this past week; patient says that it causes him to get a sexual high. He hates this about himself, hates his addiction and very much wants to be sober. Denies other drug or alcohol use. Patient lists the medications he has tried which include Vraylar, Latuda, Abilify, Zyprexa, Haldol, risperidone, Invega/Invega Sustenna, Seroquel, Thorazine. He is not sure the efficacy. Currently patient asked for Zyprexa to be increased saying that it seems to be helping his mind think more clearly; he felt Haldol lowered AH but did not take way paranoia and caused emotional blunting Discussed medication options including Clozaril, reviewing risks/side effects; patient eager to try. Patient has ADHD Patient has autism spectrum disorder Patient has severe depressive episodes and has benefitted from ECT Denies any history of manic type episodes or behaviors. Patient discussed onset of thoughts paraphilia; he patient stress thoughts only which are ego-dystonic 11/29 very paranoid; thinks peer gave him syphyillis; insists to nursing he has parasites in his stool and brings sample in a cup to nursing desk; very anxious. Agrees to start Clozapine; if effective will likely taper off and dc zyprexa -says overall depression remains mostly gone Plan: CV Q 15 minute checks titrate Clozapine (discussed risks/side-effects and pt wants med trial) continue Zyprexa to 10 mg b.i.d. Add Zyprexa as a p.r.n. at patient's request Continue bupropion Continue Zoloft Will get collateral Patient educated on: diagnosis and medication risk/benefits Informed Consent: understands and further education needed Reason for continued inpatient stay Substantial Risk for: inability to function Time Spent With Patient Time: Total time managing care of this patient today ____ minutes.
--- NOTE | 2024-12-01 13:08 | HO.PSYCHPN ---
Subjective Subjective Date of Service: 12/01/24 Reason For Visit: Unspecified Psychosis Interim History: Met with patient; discussed with team doing a little better today and says AH seem to be a little more distant; still has paranoid delusions but says today, they seem less intense; he says he feels less urgency to address them. No med side-effects and agrees to continue clozapine titration. Diagnostics Vital Signs (24Hr): Vital Signs - 24 hr 11/30/24 20:00 12/01/24 08:00 Temperature 97.5 F 98.2 F Pulse Rate 92 91 Respiratory Rate 14 16 Blood Pressure 130/77 112/62 Pulse Oximetry 97 98 Oxygen Delivery Method Room Air Labs 11/29/24 18:09 11/26/24 08:40 Labs: Laboratory Results - last 48 hr 11/29/24 18:09 WBC 6.7 RBC 4.82 Hgb 14.2 Hct 42.6 MCV 88.4 MCH 29.5 MCHC 33.3 RDW 12.5 Plt Count 291 MPV 9.1 L Immature Gran % (Auto) 0.7 H Neut % (Auto) 56.2 Lymph % (Auto) 30.3 [place] % (Auto) 8.2 Eos % (Auto) 3.6 Baso % (Auto) 1.0 Lymph # (Auto) 2.0 [place] # (Auto) 0.6 Eos # (Auto) 0.2 Baso # (Auto) 0.1 Abs Immat Gran (auto) 0.05 H Absolute Neuts (auto) 3.8 Absolute Nucleated RBC 0.000 Nucleated RBC % (auto) 0.0 Medications Medications Current Medications Acetaminophen (Acetaminophen 325 Mg Tablet) 650 mg PO Q6H PRN PRN Reason: Headache/Pain, Scale 1-10 Last Admin: 11/30/24 14:06 Dose: 650 mg Al Hydroxide/Mg Hydroxide (Magnesium Hydrox/Alum Hydrox 30 Ml Oral.Susp) 30 ml PO Q6H PRN PRN Reason: Heartburn/Nausea Bupropion HCl (Bupropion Hcl Xl 300 Mg Tab.Er.24h) 300 mg PO DAILY [facility] Last Admin: 12/01/24 09:03 Dose: 300 mg Clozapine (Clozapine 25 Mg Tablet) 75 mg PO BEDTIME [facility] Hydroxyzine HCl (Hydroxyzine Hcl 25 Mg Tablet) 25 mg PO Q6H PRN PRN Reason: mild anxiety Last Admin: 11/26/24 18:16 Dose: 25 mg Magnesium Hydroxide (Milk Of Magnesia 30 Ml Oral.Susp) 30 ml PO DAILY PRN PRN Reason: Constipation Last Admin: 11/27/24 19:11 Dose: 30 ml Nicotine Polacrilex (Nicotine Polacrilex 2 Mg Gum) 4 mg BUCCAL Q2H PRN PRN Reason: Nicotine Cravings Last Admin: 12/01/24 09:21 Dose: 4 mg Olanzapine (Olanzapine 10 Mg Tablet) 10 mg PO BID [facility] Last Admin: 12/01/24 09:03 Dose: 10 mg Olanzapine (Olanzapine 5 Mg Tablet) 5 mg PO TID PRN PRN Reason: agitation/angst/AH/paranoia Sertraline HCl (Sertraline Hcl 100 Mg Tablet) 200 mg PO DAILY [facility] Last Admin: 12/01/24 09:02 Dose: 200 mg Topiramate (Topiramate 25 Mg Tablet) 50 mg PO DAILY [facility] Last Admin: 12/01/24 09:03 Dose: 50 mg Trazodone HCl (Trazodone Hcl 50 Mg Tablet) 50 mg PO BEDTIME MRX1 PRN PRN Reason: Insomnia Last Admin: 11/26/24 21:05 Dose: 50 mg Allergies Allergies Allergy/AdvReac Type Severity Reaction Status Date / Time No Known Allergies Allergy Verified 11/25/24 19:43 Assessment & Plan Assessment & Plan (1) Schizoaffective disorder, depressive type: Status: Acute Code(s): F25.1 - Schizoaffective disorder, depressive type (2) ADHD: Status: Acute Code(s): F90.9 - Attention-deficit hyperactivity disorder, unspecified type (3) Amphetamine use disorder, severe: Status: Acute Code(s): F15.20 - Other stimulant dependence, uncomplicated (4) Autism spectrum disorder: Status: Acute Code(s): F84.0 - Autistic disorder Plan 24-year-old young man who was admitted for safety and stabilization with increase level of paranoia in the face of Adderall abuse. HOSPITAL COURSE: 11/27: Continue current regimen and plans. 11/28 Patient shared extensively about struggles with auditory hallucinations and paranoid ideations. He says he gets paranoid that people are trying to kill him, that his food is poisoned, but parasites in him or blast him with radiation... he does not really think it is paranoia and thinks it is true however he also knows that he has psychotic illness that causes his mind play tricks on him. Patient says he has AH for a long time but he is mostly able to ignore it. He was getting ECT for depression and was being tapered down to where he was getting it twice a week for the past 2 or 3 weeks. He thinks it has helped considerably with his depression. Patient said his treatment got derailed because he is addicted to amphetamines and although he prefers methamphetamine, he will take his family's Adderall and he chance he gets which happened this past week; patient says that it causes him to get a sexual high. He hates this about himself, hates his addiction and very much wants to be sober. Denies other drug or alcohol use. Patient lists the medications he has tried which include Vraylar, Latuda, Abilify, Zyprexa, Haldol, risperidone, Invega/Invega Sustenna, Seroquel, Thorazine. He is not sure the efficacy. Currently patient asked for Zyprexa to be increased saying that it seems to be helping his mind think more clearly; he felt Haldol lowered AH but did not take way paranoia and caused emotional blunting Discussed medication options including Clozaril, reviewing risks/side effects; patient eager to try. Patient has ADHD Patient has autism spectrum disorder Patient has severe depressive episodes and has benefitted from ECT Denies any history of manic type episodes or behaviors. Patient discussed onset of thoughts paraphilia; he patient stress thoughts only which are ego-dystonic 11/29 very paranoid; thinks peer gave him syphyillis; insists to nursing he has parasites in his stool and brings sample in a cup to nursing desk; very anxious. Agrees to start Clozapine; if effective will likely taper off and dc zyprexa 11/30 very paranoid; thinks peer gave him syphyillis; insists to nursing he has parasites in his stool and brings sample in a cup to nursing desk; very anxious. Agrees to start Clozapine; if effective will likely taper off and dc zyprexa -says overall depression remains mostly gone / doing a little better today and says AH seem to be a little more distant; still has paranoid delusions but says today, they seem less intense; he says he feels less urgency to address them. No med side-effects and agrees to continue clozapine titration. Plan: CV Q 15 minute checks titrate Clozapine to 75mg (discussed risks/side-effects and pt wants med trial) continue Zyprexa to 10 mg b.i.d. Add Zyprexa as a p.r.n. at patient's request Continue bupropion Continue Zoloft Will get collateral Patient educated on: diagnosis and medication risk/benefits Informed Consent: understands and further education needed Reason for continued inpatient stay Substantial Risk for: rapid decompensation Time Spent With Patient Time: Total time managing care of this patient today ____ minutes.
[2024-12-01] MEDS: Acetaminophen 325 MG TABLET 650 MG PO (14:27)
[2024-12-01 20:00] VITALS: BP 105/71; PULSE 123; RESP 18; TEMP 37.1; O2SAT 95
[2024-12-01] MEDS: cloZAPine 25 MG TABLET 75 MG PO (21:30)
[2024-12-02 08:00] VITALS: BP 127/68; PULSE 81; RESP 16; TEMP 36.5; O2SAT 98
[2024-12-02] MEDS: buPROPion HCl XL 300 MG TAB.ER.24H PO (09:13)
[2024-12-02] MEDS: Topiramate 25 MG TABLET 50 MG PO (09:13)
[2024-12-02] MEDS: OLANZapine 10 MG TABLET PO ×2 (09:13→21:46)
[2024-12-02] MEDS: Nicotine Polacrilex 2 MG GUM 4 MG BUCCAL (09:13)
[2024-12-02] MEDS: Sertraline HCL 100 MG TABLET 200 MG PO (09:13)
--- NOTE | 2024-12-02 12:51 | P.PNPSI_ITS ---
Subjective Subjective Date of Service: 12/02/24 Reason For Visit: Unspecified Psychosis Interim History: Met with patient; discussed with team Patient reports feeling much better today. AH remain however they are much more distant and easier to ignore; still has thoughts of parasite infection however he says it is less intense not really on his mind very much; also regarding whether not people are conspiring to kill him, he says it is easier to talk himself through and he shares how he reasoned with himself, saying that most people are inherently good , why should I assume the worst? Regarding depression patient said that for the 1st time in a long time he felt a moment of happiness; denies any emotional numbing. Regarding paraphilia patient says that has significantly decreased as well. Mental Status Exam Mental Status Exam Narrative: Pt is alert and oriented; behavior is more calm, friendly, more out and about in the milieu patient is not in distress; dressed in casual attire with adequate hygiene; mood is described as better and affect noticeably brighter and more calm; eye contact avoidant; Speech is normal rate, volume and prosody; no psychomotor agitation present; thought process is organized and goal directed; Thought content is on paranoid delusions; otherwise pertinent to relevant topics; denies any SI/HI. Positive AH. Patients insight and judgment impaired but much improved Diagnostics Vital Signs (24Hr): Vital Signs - 24 hr 12/01/24 20:00 12/02/24 08:00 Temperature 98.7 F 97.7 F Pulse Rate 123 H 81 Respiratory Rate 18 16 Blood Pressure 105/71 127/68 Pulse Oximetry 95 98 Oxygen Delivery Method Room Air Labs 11/29/24 18:09 11/26/24 08:40 Medications Medications Current Medications Acetaminophen (Acetaminophen 325 Mg Tablet) 650 mg PO Q6H PRN PRN Reason: Headache/Pain, Scale 1-10 Last Admin: 12/01/24 14:27 Dose: 650 mg Al Hydroxide/Mg Hydroxide (Magnesium Hydrox/Alum Hydrox 30 Ml Oral.Susp) 30 ml PO Q6H PRN PRN Reason: Heartburn/Nausea Bupropion HCl (Bupropion Hcl Xl 300 Mg Tab.Er.24h) 300 mg PO DAILY [facility] Last Admin: 12/02/24 09:13 Dose: 300 mg Clozapine (Clozapine 100 Mg Tablet) 100 mg PO BEDTIME [facility] Hydroxyzine HCl (Hydroxyzine Hcl 25 Mg Tablet) 25 mg PO Q6H PRN PRN Reason: mild anxiety Last Admin: 11/26/24 18:16 Dose: 25 mg Magnesium Hydroxide (Milk Of Magnesia 30 Ml Oral.Susp) 30 ml PO DAILY PRN PRN Reason: Constipation Last Admin: 11/27/24 19:11 Dose: 30 ml Nicotine Polacrilex (Nicotine Polacrilex 2 Mg Gum) 4 mg BUCCAL Q2H PRN PRN Reason: Nicotine Cravings Last Admin: 12/02/24 09:13 Dose: 4 mg Olanzapine (Olanzapine 10 Mg Tablet) 10 mg PO BID [facility] Last Admin: 12/02/24 09:13 Dose: 10 mg Olanzapine (Olanzapine 5 Mg Tablet) 5 mg PO TID PRN PRN Reason: agitation/angst/AH/paranoia Sertraline HCl (Sertraline Hcl 100 Mg Tablet) 200 mg PO DAILY [facility] Last Admin: 12/02/24 09:13 Dose: 200 mg Topiramate (Topiramate 25 Mg Tablet) 50 mg PO DAILY [facility] Last Admin: 12/02/24 09:13 Dose: 50 mg Trazodone HCl (Trazodone Hcl 50 Mg Tablet) 50 mg PO BEDTIME MRX1 PRN PRN Reason: Insomnia Last Admin: 11/26/24 21:05 Dose: 50 mg Allergies Allergies Allergy/AdvReac Type Severity Reaction Status Date / Time No Known Allergies Allergy Verified 11/25/24 19:43 Assessment & Plan Assessment & Plan (1) Schizoaffective disorder, depressive type: Status: Acute Code(s): F25.1 - Schizoaffective disorder, depressive type (2) ADHD: Status: Acute Code(s): F90.9 - Attention-deficit hyperactivity disorder, unspecified type (3) Amphetamine use disorder, severe: Status: Acute Code(s): F15.20 - Other stimulant dependence, uncomplicated (4) Autism spectrum disorder: Status: Acute Code(s): F84.0 - Autistic disorder Plan 24-year-old young man who was admitted for safety and stabilization with increase level of paranoia in the face of Adderall abuse. HOSPITAL COURSE: 11/27: Continue current regimen and plans. 11/28 Patient shared extensively about struggles with auditory hallucinations and paranoid ideations. He says he gets paranoid that people are trying to kill him, that his food is poisoned, but parasites in him or blast him with radiation... he does not really think it is paranoia and thinks it is true however he also knows that he has psychotic illness that causes his mind play tricks on him. Patient says he has AH for a long time but he is mostly able to ignore it. He was getting ECT for depression and was being tapered down to where he was getting it twice a week for the past 2 or 3 weeks. He thinks it has helped considerably with his depression. Patient said his treatment got derailed because he is addicted to amphetamines and although he prefers methamphetamine, he will take his family's Adderall and he chance he gets which happened this past week; patient says that it causes him to get a sexual high. He hates this about himself, hates his addiction and very much wants to be sober. Denies other drug or alcohol use. Patient lists the medications he has tried which include Vraylar, Latuda, Abilify, Zyprexa, Haldol, risperidone, Invega/Invega Sustenna, Seroquel, Thorazine. He is not sure the efficacy. Currently patient asked for Zyprexa to be increased saying that it seems to be helping his mind think more clearly; he felt Haldol lowered AH but did not take way paranoia and caused emotional blunting Discussed medication options including Clozaril, reviewing risks/side effects; patient eager to try. Patient has ADHD Patient has autism spectrum disorder Patient has severe depressive episodes and has benefitted from ECT Denies any history of manic type episodes or behaviors. Patient discussed onset of thoughts paraphilia; he patient stress thoughts only which are ego-dystonic 11/29 very paranoid; thinks peer gave him syphyillis; insists to nursing he has parasites in his stool and brings sample in a cup to nursing desk; very anxious. Agrees to start Clozapine; if effective will likely taper off and dc zyprexa 11/30 very paranoid; thinks peer gave him syphyillis; insists to nursing he has parasites in his stool and brings sample in a cup to nursing desk; very anxious. Agrees to start Clozapine; if effective will likely taper off and dc zyprexa -says overall depression remains mostly gone 12/01 doing a little better today and says AH seem to be a little more distant; still has paranoid delusions but says today, they seem less intense; he says he feels less urgency to address them. No med side-effects and agrees to continue clozapine titration. 12/02 Patient reports feeling much better today. AH remain however they are much more distant and easier to ignore; still has thoughts of parasite infection however he says it is less intense not really on his mind very much; also regarding whether not people are conspiring to kill him, he says it is easier to talk himself through and he shares how he reasoned with himself, saying that most people are inherently good , why should I assume the worst? Regarding depression patient said that for the 1st time in a long time he felt a moment of happiness; denies any emotional numbing. Regarding paraphilia patient says that has significantly decreased as well. Discussed titration and patient agrees to increase Clozaril to 100 mg. Patient's improvement is very new and his situation remains fragile; he needs to remain on inpatient unit for continued monitoring and evaluation of medication effectiveness. Will leave medication at Clozaril 100 mg q.h.s. for now and evaluate in a few days; If remains stable and improved will consider tapering off Zyprexa Plan: CV Q 15 minute checks Increase to Clozapine to 100 mg (discussed risks/side-effects and pt wants med trial) continue Zyprexa to 10 mg b.i.d. Add Zyprexa as a p.r.n. at patient's request Continue bupropion Continue Zoloft Will get collateral Patient educated on: diagnosis, medication risk/benefits and therapeutic strategies Informed Consent: understands Reason for continued inpatient stay Substantial Risk for: rapid decompensation Time Spent With Patient Time: Total time managing care of this patient today ____ minutes.
[2024-12-02 20:00] VITALS: BP 116/58; PULSE 86; TEMP 36.4; O2SAT 93
[2024-12-02] MEDS: cloZAPine 100 MG TABLET PO (21:46)
[2024-12-02] MEDS: Acetaminophen 325 MG TABLET 650 MG PO (22:29)
[2024-12-03 08:11] VITALS: BP 114/59; PULSE 90; TEMP 37; O2SAT 97
[2024-12-03] MEDS: buPROPion HCl XL 300 MG TAB.ER.24H PO (09:21)
[2024-12-03] MEDS: Topiramate 25 MG TABLET 50 MG PO (09:22)
[2024-12-03] MEDS: Sertraline HCL 100 MG TABLET 200 MG PO (09:22)
[2024-12-03] MEDS: OLANZapine 10 MG TABLET PO ×2 (09:22→20:18)
[2024-12-03] MEDS: Nicotine Polacrilex 2 MG GUM 4 MG BUCCAL (09:37)
[2024-12-03] MEDS: HaloperidoL 5 MG TABLET PO (17:22)
[2024-12-03] MEDS: Benztropine Mesylate 1 MG TABLET PO (17:22)
[2024-12-03 19:54] VITALS: BP 129/66; PULSE 120; RESP 15; TEMP 36.8; O2SAT 98
[2024-12-03] MEDS: cloZAPine 100 MG TABLET PO (20:17)
--- NOTE | 2024-12-03 20:31 | P.PNPSI_ITS ---
Subjective Subjective Date of Service: 12/03/24 Reason For Visit: Unspecified Psychosis Interim History: Patient seen psychiatric follow-up in [facility] [place]. Case reviewed with nursing staff. The patient has reportedly done well with the addition of clozapine. He had been asking for a Haldol PRN in the later afternoon when he became more uneasy being around other people. He states he has done well with Haldol as a p.r.n. in the past Medication Compliance: Yes Mental Status Exam Mental Status Exam Narrative: Pt is alert and oriented; behavior is more calm, friendly, more out and about in the milieu patient is not in distress; dressed in casual attire with adequate hygiene; mood is described as better and affect noticeably brighter and more calm; eye contact avoidant; Speech is normal rate, volume and prosody; no psychomotor agitation present; thought process is organized and goal directed; Thought content is on paranoid delusions; otherwise pertinent to relevant topics; denies any SI/HI. Positive AH. But states this is much decreased from normal. Has some avoidance behavior around others Patients insight and judgment impaired but much improved. Denies current side effects no abnormal movements noted Diagnostics Vital Signs (24Hr): Vital Signs - 24 hr 12/03/24 08:11 12/03/24 19:54 Temperature 98.6 F 98.2 F Pulse Rate 90 120 H Respiratory Rate 15 Blood Pressure 114/59 L 129/66 Pulse Oximetry 97 98 Oxygen Delivery Method Room Air Labs 11/29/24 18:09 11/26/24 08:40 Medications Medications Current Medications Acetaminophen (Acetaminophen 325 Mg Tablet) 650 mg PO Q6H PRN PRN Reason: Headache/Pain, Scale 1-10 Last Admin: 12/02/24 22:29 Dose: 650 mg Al Hydroxide/Mg Hydroxide (Magnesium Hydrox/Alum Hydrox 30 Ml Oral.Susp) 30 ml PO Q6H PRN PRN Reason: Heartburn/Nausea Bupropion HCl (Bupropion Hcl Xl 300 Mg Tab.Er.24h) 300 mg PO DAILY [facility] Last Admin: 12/03/24 09:21 Dose: 300 mg Clozapine (Clozapine 100 Mg Tablet) 100 mg PO BEDTIME [facility] Last Admin: 12/03/24 20:17 Dose: 100 mg Hydroxyzine HCl (Hydroxyzine Hcl 25 Mg Tablet) 25 mg PO Q6H PRN PRN Reason: mild anxiety Last Admin: 11/26/24 18:16 Dose: 25 mg Magnesium Hydroxide (Milk Of Magnesia 30 Ml Oral.Susp) 30 ml PO DAILY PRN PRN Reason: Constipation Last Admin: 11/27/24 19:11 Dose: 30 ml Nicotine Polacrilex (Nicotine Polacrilex 2 Mg Gum) 4 mg BUCCAL Q2H PRN PRN Reason: Nicotine Cravings Last Admin: 12/03/24 09:37 Dose: 4 mg Olanzapine (Olanzapine 10 Mg Tablet) 10 mg PO BID [facility] Last Admin: 12/03/24 20:18 Dose: 10 mg Olanzapine (Olanzapine 5 Mg Tablet) 5 mg PO TID PRN PRN Reason: agitation/angst/AH/paranoia Sertraline HCl (Sertraline Hcl 100 Mg Tablet) 200 mg PO DAILY [facility] Last Admin: 12/03/24 09:22 Dose: 200 mg Topiramate (Topiramate 25 Mg Tablet) 50 mg PO DAILY [facility] Last Admin: 12/03/24 09:22 Dose: 50 mg Trazodone HCl (Trazodone Hcl 50 Mg Tablet) 50 mg PO BEDTIME MRX1 PRN PRN Reason: Insomnia Last Admin: 11/26/24 21:05 Dose: 50 mg Allergies Allergies Allergy/AdvReac Type Severity Reaction Status Date / Time No Known Allergies Allergy Verified 11/25/24 19:43 Assessment & Plan Assessment & Plan (1) Schizoaffective disorder, depressive type: Status: Acute Code(s): F25.1 - Schizoaffective disorder, depressive type (2) ADHD: Status: Acute Code(s): F90.9 - Attention-deficit hyperactivity disorder, unspecified type (3) Amphetamine use disorder, severe: Status: Acute Code(s): F15.20 - Other stimulant dependence, uncomplicated (4) Autism spectrum disorder: Status: Acute Code(s): F84.0 - Autistic disorder Plan 24-year-old young man who was admitted for safety and stabilization with increase level of paranoia in the face of Adderall abuse. HOSPITAL COURSE: 11/27: Continue current regimen and plans. 11/28 Patient shared extensively about struggles with auditory hallucinations and paranoid ideations. He says he gets paranoid that people are trying to kill him, that his food is poisoned, but parasites in him or blast him with radiation... he does not really think it is paranoia and thinks it is true however he also knows that he has psychotic illness that causes his mind play tricks on him. Patient says he has AH for a long time but he is mostly able to ignore it. He was getting ECT for depression and was being tapered down to where he was getting it twice a week for the past 2 or 3 weeks. He thinks it has helped considerably with his depression. Patient said his treatment got derailed because he is addicted to amphetamines and although he prefers methamphetamine, he will take his family's Adderall and he chance he gets which happened this past week; patient says that it causes him to get a sexual high. He hates this about himself, hates his addiction and very much wants to be sober. Denies other drug or alcohol use. Patient lists the medications he has tried which include Vraylar, Latuda, Abilify, Zyprexa, Haldol, risperidone, Invega/Invega Sustenna, Seroquel, Thorazine. He is not sure the efficacy. Currently patient asked for Zyprexa to be increased saying that it seems to be helping his mind think more clearly; he felt Haldol lowered AH but did not take way paranoia and caused emotional blunting Discussed medication options including Clozaril, reviewing risks/side effects; patient eager to try. Patient has ADHD Patient has autism spectrum disorder Patient has severe depressive episodes and has benefitted from ECT Denies any history of manic type episodes or behaviors. Patient discussed onset of thoughts paraphilia; he patient stress thoughts only which are ego-dystonic 11/29 very paranoid; thinks peer gave him syphyillis; insists to nursing he has parasites in his stool and brings sample in a cup to nursing desk; very anxious. Agrees to start Clozapine; if effective will likely taper off and dc zyprexa 11/30 very paranoid; thinks peer gave him syphyillis; insists to nursing he has parasites in his stool and brings sample in a cup to nursing desk; very anxious. Agrees to start Clozapine; if effective will likely taper off and dc zyprexa -says overall depression remains mostly gone / doing a little better today and says AH seem to be a little more distant; still has paranoid delusions but says today, they seem less intense; he says he feels less urgency to address them. No med side-effects and agrees to continue clozapine titration. 12/02 Patient reports feeling much better today. AH remain however they are much more distant and easier to ignore; still has thoughts of parasite infection however he says it is less intense not really on his mind very much; also regarding whether not people are conspiring to kill him, he says it is easier to talk himself through and he shares how he reasoned with himself, saying that most people are inherently good , why should I assume the worst? Regarding depression patient said that for the 1st time in a long time he felt a moment of happiness; denies any emotional numbing. Regarding paraphilia patient says that has significantly decreased as well. Discussed titration and patient agrees to increase Clozaril to 100 mg. Patient's improvement is very new and his situation remains fragile; he needs to remain on inpatient unit for continued monitoring and evaluation of medication effectiveness. Will leave medication at Clozaril 100 mg q.h.s. for now and evaluate in a few days; If remains stable and improved will consider tapering off Zyprexa 12/03/2024 Patient seen chart reviewed. Patient asking for a PRN of Haldol which he states is more helpful than p.r.n. olanzapine. EKG ordered some atypical conduction delay. Given a dose of Haldol p.r.n. which patient states helps for internal psychotic agitation. Monitor response Plan: CV Q 15 minute checks Increase to Clozapine to 100 mg (discussed risks/side-effects and pt wants med trial) continue Zyprexa to 10 mg b.i.d. Add Zyprexa as a p.r.n. at patient's request Continue bupropion Continue Zoloft Will get collateral Reason for continued inpatient stay Substantial Risk for: inability to function and rapid decompensation Time Spent With Patient Time: Total time managing care of this patient today ____ minutes.
[2024-12-04 08:00] VITALS: BP 117/73; PULSE 85; TEMP 36.5; O2SAT 99
--- NOTE | 2024-12-04 08:00 | ECG_ITS ---
Test Reason : on clozapine/haldol Blood Pressure : */* mmHG Vent. Rate : 102 BPM Atrial Rate : 102 BPM P-R Int : 136 ms QRS Dur : 118 ms QT Int : 348 ms P-R-T Axes : 73 77 50 degrees QTcB Int : 453 ms Sinus tachycardia Non-specific intra-ventricular conduction delay Borderline ECG No previous ECGs available Referred By: Shravan Arnold Electronically Signed By: TIFFANIE CONDE
[2024-12-04] MEDS: OLANZapine 10 MG TABLET PO ×2 (08:55→20:36)
[2024-12-04] MEDS: Topiramate 25 MG TABLET 50 MG PO (08:55)
[2024-12-04] MEDS: buPROPion HCl XL 300 MG TAB.ER.24H PO (08:55)
[2024-12-04] MEDS: Sertraline HCL 100 MG TABLET 200 MG PO (08:55)
[2024-12-04] MEDS: Nicotine Polacrilex 2 MG GUM 4 MG BUCCAL ×2 (11:01→20:41)
[2024-12-04] MEDS: HaloperidoL 5 MG TABLET PO (15:00)
[2024-12-04] MEDS: Acetaminophen 325 MG TABLET 650 MG PO (19:21)
[2024-12-04 19:59] VITALS: BP 122/62; PULSE 141; RESP 15; TEMP 36.5; O2SAT 96
[2024-12-04] MEDS: cloZAPine 100 MG TABLET PO (20:36)
[2024-12-04 20:42] VITALS: PULSE 120
--- NOTE | 2024-12-04 23:10 | HO.PSYCHPN ---
Subjective Subjective Date of Service: 12/04/24 Reason For Visit: Unspecified Psychosis Interim History: Met with patient; discussed with team Patient reports feeling much better today. AH remain however they are much more distant and easier to ignore; still has thoughts of parasite infection however he says it is less intense not really on his mind very much; also regarding whether not people are conspiring to kill him, he says it is easier to talk himself through and he shares how he reasoned with himself, saying that most people are inherently good , why should I assume the worst? Regarding depression patient said that for the 1st time in a long time he felt a moment of happiness; denies any emotional numbing. Regarding paraphilia patient says that has significantly decreased as well. Per staff patient has been more cooperative, pleasant and attending groups. When I found him, he had spent most of day was isolating in room, intermittently seen on milieu Shares some gains in insight regarding his mental illness. Shares he had a hsitory of poor med complaince. Says not that he is back on medication he can think and see more rationally. AH is still there never fully gone since 2020. Mood is good , denies SI. On CLozaril for first time and feels it is effective and feels this is well-tolerated. Also on Zyprexa in AM and PM and back on Topemax for meth cravings which he also feels is helpful. Review of Systems Review of Systems Patient denies any chest pain, shortness of breath at rest or exertion, abdominal pain, nausea, vomiting, diarrhea or constipation. Patient reports vaping nicotine but denies need for nicotine replacement therapy. Patient denies any history of liver problems, alcohol use or illicit drug use. Patient states he was using methamphetamine IV. Patient required hospitalization at that time for palpitations and fast heart rate. Patient denies any issues with burning or pain on urination or STD symptoms. Yes all other systems are reviewed and are negative Mental Status Exam Mental Status Exam Narrative: Pt is alert and oriented; behavior is more calm, friendly, more out and about in the milieu patient is not in distress; dressed in casual attire with adequate hygiene; mood is described as better and affect noticeably brighter and more calm; eye contact avoidant; Speech is normal rate, volume and prosody; no psychomotor agitation present; thought process is organized and goal directed; Thought content is on paranoid delusions; otherwise pertinent to relevant topics; denies any SI/HI. Positive AH. Patients insight and judgment impaired but much improved Diagnostics Vital Signs (24Hr): Vital Signs - 24 hr 12/04/24 08:00 12/04/24 19:59 12/04/24 20:42 Temperature 97.7 F 97.7 F Pulse Rate 85 141 H 120 H Respiratory Rate 15 Blood Pressure 117/73 122/62 Pulse Oximetry 99 96 Oxygen Delivery Method Room Air Labs 11/29/24 18:09 11/26/24 08:40 Medications Medications Current Medications Acetaminophen (Acetaminophen 325 Mg Tablet) 650 mg PO Q6H PRN PRN Reason: Headache/Pain, Scale 1-10 Last Admin: 12/04/24 19:21 Dose: 650 mg Al Hydroxide/Mg Hydroxide (Magnesium Hydrox/Alum Hydrox 30 Ml Oral.Susp) 30 ml PO Q6H PRN PRN Reason: Heartburn/Nausea Bupropion HCl (Bupropion Hcl Xl 300 Mg Tab.Er.24h) 300 mg PO DAILY [facility] Last Admin: 12/04/24 08:55 Dose: 300 mg Clozapine (Clozapine 100 Mg Tablet) 100 mg PO BEDTIME [facility] Last Admin: 12/04/24 20:36 Dose: 100 mg Hydroxyzine HCl (Hydroxyzine Hcl 25 Mg Tablet) 25 mg PO Q6H PRN PRN Reason: mild anxiety Last Admin: 11/26/24 18:16 Dose: 25 mg Magnesium Hydroxide (Milk Of Magnesia 30 Ml Oral.Susp) 30 ml PO DAILY PRN PRN Reason: Constipation Last Admin: 11/27/24 19:11 Dose: 30 ml Nicotine Polacrilex (Nicotine Polacrilex 2 Mg Gum) 4 mg BUCCAL Q2H PRN PRN Reason: Nicotine Cravings Last Admin: 12/04/24 20:41 Dose: 4 mg Olanzapine (Olanzapine 10 Mg Tablet) 10 mg PO BID [facility] Last Admin: 12/04/24 20:36 Dose: 10 mg Olanzapine (Olanzapine 5 Mg Tablet) 5 mg PO TID PRN PRN Reason: agitation/angst/AH/paranoia Sertraline HCl (Sertraline Hcl 100 Mg Tablet) 200 mg PO DAILY [facility] Last Admin: 12/04/24 08:55 Dose: 200 mg Topiramate (Topiramate 25 Mg Tablet) 50 mg PO DAILY [facility] Last Admin: 12/04/24 08:55 Dose: 50 mg Trazodone HCl (Trazodone Hcl 50 Mg Tablet) 50 mg PO BEDTIME MRX1 PRN PRN Reason: Insomnia Last Admin: 11/26/24 21:05 Dose: 50 mg Allergies Allergies Allergy/AdvReac Type Severity Reaction Status Date / Time No Known Allergies Allergy Verified 11/25/24 19:43 Assessment & Plan Assessment & Plan (1) Schizoaffective disorder, depressive type: Status: Acute Code(s): F25.1 - Schizoaffective disorder, depressive type (2) ADHD: Status: Acute Code(s): F90.9 - Attention-deficit hyperactivity disorder, unspecified type (3) Amphetamine use disorder, severe: Status: Acute Code(s): F15.20 - Other stimulant dependence, uncomplicated (4) Autism spectrum disorder: Status: Acute Code(s): F84.0 - Autistic disorder Plan 24-year-old young man who was admitted for safety and stabilization with increase level of paranoia in the face of Adderall abuse. HOSPITAL COURSE: 11/27: Continue current regimen and plans. 11/28 Patient shared extensively about struggles with auditory hallucinations and paranoid ideations. He says he gets paranoid that people are trying to kill him, that his food is poisoned, but parasites in him or blast him with radiation... he does not really think it is paranoia and thinks it is true however he also knows that he has psychotic illness that causes his mind play tricks on him. Patient says he has AH for a long time but he is mostly able to ignore it. He was getting ECT for depression and was being tapered down to where he was getting it twice a week for the past 2 or 3 weeks. He thinks it has helped considerably with his depression. Patient said his treatment got derailed because he is addicted to amphetamines and although he prefers methamphetamine, he will take his family's Adderall and he chance he gets which happened this past week; patient says that it causes him to get a sexual high. He hates this about himself, hates his addiction and very much wants to be sober. Denies other drug or alcohol use. Patient lists the medications he has tried which include Vraylar, Latuda, Abilify, Zyprexa, Haldol, risperidone, Invega/Invega Sustenna, Seroquel, Thorazine. He is not sure the efficacy. Currently patient asked for Zyprexa to be increased saying that it seems to be helping his mind think more clearly; he felt Haldol lowered AH but did not take way paranoia and caused emotional blunting Discussed medication options including Clozaril, reviewing risks/side effects; patient eager to try. Patient has ADHD Patient has autism spectrum disorder Patient has severe depressive episodes and has benefitted from ECT Denies any history of manic type episodes or behaviors. Patient discussed onset of thoughts paraphilia; he patient stress thoughts only which are ego-dystonic 11/29 very paranoid; thinks peer gave him syphyillis; insists to nursing he has parasites in his stool and brings sample in a cup to nursing desk; very anxious. Agrees to start Clozapine; if effective will likely taper off and dc zyprexa 11/30 very paranoid; thinks peer gave him syphyillis; insists to nursing he has parasites in his stool and brings sample in a cup to nursing desk; very anxious. Agrees to start Clozapine; if effective will likely taper off and dc zyprexa -says overall depression remains mostly gone 12/01 doing a little better today and says AH seem to be a little more distant; still has paranoid delusions but says today, they seem less intense; he says he feels less urgency to address them. No med side-effects and agrees to continue clozapine titration. 12/02 Patient reports feeling much better today. AH remain however they are much more distant and easier to ignore; still has thoughts of parasite infection however he says it is less intense not really on his mind very much; also regarding whether not people are conspiring to kill him, he says it is easier to talk himself through and he shares how he reasoned with himself, saying that most people are inherently good , why should I assume the worst? Regarding depression patient said that for the 1st time in a long time he felt a moment of happiness; denies any emotional numbing. Regarding paraphilia patient says that has significantly decreased as well. Discussed titration and patient agrees to increase Clozaril to 100 mg. Patient's improvement is very new and his situation remains fragile; he needs to remain on inpatient unit for continued monitoring and evaluation of medication effectiveness. Will leave medication at Clozaril 100 mg q.h.s. for now and evaluate in a few days; If remains stable and improved will consider tapering off Zyprexa Plan: CV Q 15 minute checks Increase to Clozapine to 100 mg (discussed risks/side-effects and pt wants med trial) continue Zyprexa to 10 mg b.i.d. Add Zyprexa as a p.r.n. at patient's request Continue bupropion Continue Zoloft Will get collateral Informed Consent: understands Reason for continued inpatient stay Substantial Risk for: med/psych decompensation Time Spent With Patient Time: Total time managing care of this patient today ____ minutes.
[2024-12-05 08:00] VITALS: BP 112/58; PULSE 95; TEMP 36.6; O2SAT 97
[2024-12-05] MEDS: OLANZapine 10 MG TABLET PO ×2 (08:57→20:10)
[2024-12-05] MEDS: Topiramate 25 MG TABLET 50 MG PO (08:57)
[2024-12-05] MEDS: buPROPion HCl XL 300 MG TAB.ER.24H PO (08:57)
[2024-12-05] MEDS: Sertraline HCL 100 MG TABLET 200 MG PO (08:57)
[2024-12-05] MEDS: Milk of Magnesia 30 ML ORAL.SUSP PO (09:10)
[2024-12-05] MEDS: Nicotine Polacrilex 2 MG GUM 4 MG BUCCAL ×3 (09:10→19:23)
--- NOTE | 2024-12-05 15:05 | P.PNPSI_ITS ---
Subjective Subjective Date of Service: 12/05/24 Reason For Visit: Unspecified Psychosis Interim History: Met with patient; Discussed with team Patient feels that daytime Clozaril is very helpful in keeping symptoms down and would like to continue. AH and paranoid ideations remain but are diminished and patient is not overly bothered by them. Discussed ADHD symptoms Intuniv, risks/side effects and patient would like to try Mental Status Exam Mental Status Exam Narrative: Pt is alert and oriented; behavior is more calm, friendly, more out and about in the milieu patient is not in distress; dressed in casual attire with adequate hygiene; mood is described as better and affect noticeably brighter and more calm; eye contact avoidant; Speech is normal rate, volume and prosody; no psychomotor agitation present; thought process is organized and goal directed; Thought content is on paranoid delusions; otherwise pertinent to relevant topics; denies any SI/HI. Positive AH. Patients insight and judgment impaired but much improved Diagnostics Vital Signs (24Hr): Vital Signs - 24 hr 12/04/24 19:59 12/04/24 20:42 12/05/24 08:00 Temperature 97.7 F 97.8 F Pulse Rate 141 H 120 H 95 Respiratory Rate 15 Blood Pressure 122/62 112/58 L Pulse Oximetry 96 97 Oxygen Delivery Method Room Air Labs 11/29/24 18:09 11/26/24 08:40 Medications Medications Current Medications Acetaminophen (Acetaminophen 325 Mg Tablet) 650 mg PO Q6H PRN PRN Reason: Headache/Pain, Scale 1-10 Last Admin: 12/04/24 19:21 Dose: 650 mg Al Hydroxide/Mg Hydroxide (Magnesium Hydrox/Alum Hydrox 30 Ml Oral.Susp) 30 ml PO Q6H PRN PRN Reason: Heartburn/Nausea Bupropion HCl (Bupropion Hcl Xl 300 Mg Tab.Er.24h) 300 mg PO DAILY [facility] Last Admin: 12/05/24 08:57 Dose: 300 mg Clozapine (Clozapine 100 Mg Tablet) 100 mg PO BEDTIME [facility] Last Admin: 12/04/24 20:36 Dose: 100 mg Clozapine (Clozapine 25 Mg Tablet) 25 mg PO BID@0900,1400 [facility] Clozapine (Clozapine 25 Mg Tablet) 25 mg PO ONCE ONE Stop: 12/05/24 15:00 Hydroxyzine HCl (Hydroxyzine Hcl 25 Mg Tablet) 25 mg PO Q6H PRN PRN Reason: mild anxiety Last Admin: 11/26/24 18:16 Dose: 25 mg Magnesium Hydroxide (Milk Of Magnesia 30 Ml Oral.Susp) 30 ml PO DAILY PRN PRN Reason: Constipation Last Admin: 12/05/24 09:10 Dose: 30 ml Nicotine Polacrilex (Nicotine Polacrilex 2 Mg Gum) 4 mg BUCCAL Q2H PRN PRN Reason: Nicotine Cravings Last Admin: 12/05/24 09:10 Dose: 4 mg Olanzapine (Olanzapine 10 Mg Tablet) 10 mg PO BID [facility] Last Admin: 12/05/24 08:57 Dose: 10 mg Olanzapine (Olanzapine 5 Mg Tablet) 5 mg PO TID PRN PRN Reason: agitation/angst/AH/paranoia Sertraline HCl (Sertraline Hcl 100 Mg Tablet) 200 mg PO DAILY [facility] Last Admin: 12/05/24 08:57 Dose: 200 mg Topiramate (Topiramate 25 Mg Tablet) 50 mg PO DAILY [facility] Last Admin: 12/05/24 08:57 Dose: 50 mg Trazodone HCl (Trazodone Hcl 50 Mg Tablet) 50 mg PO BEDTIME MRX1 PRN PRN Reason: Insomnia Last Admin: 11/26/24 21:05 Dose: 50 mg Allergies Allergies Allergy/AdvReac Type Severity Reaction Status Date / Time No Known Allergies Allergy Verified 11/25/24 19:43 Assessment & Plan Assessment & Plan (1) Schizoaffective disorder, depressive type: Status: Acute Code(s): F25.1 - Schizoaffective disorder, depressive type (2) ADHD: Status: Acute Code(s): F90.9 - Attention-deficit hyperactivity disorder, unspecified type (3) Amphetamine use disorder, severe: Status: Acute Code(s): F15.20 - Other stimulant dependence, uncomplicated (4) Autism spectrum disorder: Status: Acute Code(s): F84.0 - Autistic disorder Plan 24-year-old young man who was admitted for safety and stabilization with increase level of paranoia in the face of Adderall abuse. HOSPITAL COURSE: 11/27: Continue current regimen and plans. 11/28 Patient shared extensively about struggles with auditory hallucinations and paranoid ideations. He says he gets paranoid that people are trying to kill him, that his food is poisoned, but parasites in him or blast him with radiation... he does not really think it is paranoia and thinks it is true however he also knows that he has psychotic illness that causes his mind play tricks on him. Patient says he has AH for a long time but he is mostly able to ignore it. He was getting ECT for depression and was being tapered down to where he was getting it twice a week for the past 2 or 3 weeks. He thinks it has helped considerably with his depression. Patient said his treatment got derailed because he is addicted to amphetamines and although he prefers methamphetamine, he will take his family's Adderall and he chance he gets which happened this past week; patient says that it causes him to get a sexual high. He hates this about himself, hates his addiction and very much wants to be sober. Denies other drug or alcohol use. Patient lists the medications he has tried which include Vraylar, Latuda, Abilify, Zyprexa, Haldol, risperidone, Invega/Invega Sustenna, Seroquel, Thorazine. He is not sure the efficacy. Currently patient asked for Zyprexa to be increased saying that it seems to be helping his mind think more clearly; he felt Haldol lowered AH but did not take way paranoia and caused emotional blunting Discussed medication options including Clozaril, reviewing risks/side effects; patient eager to try. Patient has ADHD Patient has autism spectrum disorder Patient has severe depressive episodes and has benefitted from ECT Denies any history of manic type episodes or behaviors. Patient discussed onset of thoughts paraphilia; he patient stress thoughts only which are ego-dystonic 11/29 very paranoid; thinks peer gave him syphyillis; insists to nursing he has parasites in his stool and brings sample in a cup to nursing desk; very anxious. Agrees to start Clozapine; if effective will likely taper off and dc zyprexa 11/30 very paranoid; thinks peer gave him syphyillis; insists to nursing he has parasites in his stool and brings sample in a cup to nursing desk; very anxious. Agrees to start Clozapine; if effective will likely taper off and dc zyprexa -says overall depression remains mostly gone / doing a little better today and says AH seem to be a little more distant; still has paranoid delusions but says today, they seem less intense; he says he feels less urgency to address them. No med side-effects and agrees to continue clozapine titration. 12/02 Patient reports feeling much better today. AH remain however they are much more distant and easier to ignore; still has thoughts of parasite infection however he says it is less intense not really on his mind very much; also regarding whether not people are conspiring to kill him, he says it is easier to talk himself through and he shares how he reasoned with himself, saying that most people are inherently good , why should I assume the worst? Regarding depression patient said that for the 1st time in a long time he felt a moment of happiness; denies any emotional numbing. Regarding paraphilia patient says that has significantly decreased as well. Discussed titration and patient agrees to increase Clozaril to 100 mg. Patient's improvement is very new and his situation remains fragile; he needs to remain on inpatient unit for continued monitoring and evaluation of medication effectiveness. Will leave medication at Clozaril 100 mg q.h.s. for now and evaluate in a few days; If remains stable and improved will consider tapering off Zyprexa 12/05 Patient feels that daytime Clozaril is very helpful in keeping symptoms down and would like to continue. AH and paranoid ideations remain but are diminished and patient is not overly bothered by them. Discussed ADHD symptoms Intuniv, risks/side effects and patient would like to try. Regarding Zyprexa, while wanting to taper off, patient is stable and instead of lowering this medication wants to try Intuniv instead for ADHD Plan: CV Q 15 minute checks Increase to Clozapine to 100 mg (discussed risks/side-effects and pt wants med trial) continue Zyprexa to 10 mg b.i.d. Add Zyprexa as a p.r.n. at patient's request Continue bupropion Continue Zoloft Will get collateral Substance abuse treatment and risks discussed with patient who at this time patient declines MAT or help with outpt treatment options including programs; instead patient is choosing to work out sobriety on own Patient educated on: diagnosis, medication risk/benefits and therapeutic strategies Informed Consent: understands and further education needed Reason for continued inpatient stay Substantial Risk for: stable for discharge and rapid decompensation Time Spent With Patient Time: Total time managing care of this patient today ____ minutes.
[2024-12-05] MEDS: cloZAPine 25 MG TABLET PO (15:25)
[2024-12-05 20:00] VITALS: BP 134/69; PULSE 109; RESP 16; TEMP 37; O2SAT 97
[2024-12-05] MEDS: cloZAPine 100 MG TABLET PO (20:10)
[2024-12-06 08:00] VITALS: BP 120/62; PULSE 86; TEMP 36.3; O2SAT 99
[2024-12-06 08:15] LABS: Neut%MD 64.1 %; Neutrophils Absolute Auto 4.7 x10*3/uL (2.0-8.3); WBCANC 7.3 X10*3/uL
[2024-12-06] MEDS: cloZAPine 25 MG TABLET PO ×2 (08:45→13:02)
[2024-12-06] MEDS: OLANZapine 10 MG TABLET PO ×2 (08:45→20:52)
[2024-12-06] MEDS: Topiramate 25 MG TABLET 50 MG PO (08:45)
[2024-12-06] MEDS: buPROPion HCl XL 300 MG TAB.ER.24H PO (08:45)
[2024-12-06] MEDS: Sertraline HCL 100 MG TABLET 200 MG PO (08:45)
[2024-12-06] MEDS: Nicotine Polacrilex 2 MG GUM 4 MG BUCCAL ×2 (08:48→17:57)
[2024-12-06] MEDS: OLANZapine 5 MG TABLET PO (18:15)
[2024-12-06 20:00] VITALS: BP 120/72; PULSE 110; TEMP 37.7; O2SAT 97
[2024-12-06] MEDS: cloZAPine 100 MG TABLET PO (20:51)
[2024-12-07 07:55] VITALS: BP 99/56; PULSE 71; RESP 16; TEMP 36.6; O2SAT 97
[2024-12-07] MEDS: OLANZapine 10 MG TABLET PO (08:55)
[2024-12-07] MEDS: Sertraline HCL 100 MG TABLET 200 MG PO (08:55)
[2024-12-07] MEDS: buPROPion HCl XL 300 MG TAB.ER.24H PO (08:55)
[2024-12-07] MEDS: Topiramate 25 MG TABLET 50 MG PO (08:56)
[2024-12-07] MEDS: cloZAPine 25 MG TABLET PO ×2 (08:56→13:11)
--- NOTE | 2024-12-07 10:07 | P.PNPSI_ITS ---
Subjective Subjective Date of Service: 12/06/24 Reason For Visit: Unspecified Psychosis Interim History: late entry note for patient seen 12/06/24; discussed with team Continues to find daytime Clozaril quite helpful; will try Intuniv tomorrow. Because of decrease psychotic symptoms, patient feels he has much more ability to focus on things he is interested in and wrote letters to his family, apologizing for past behaviors. Mental Status Exam Mental Status Exam Narrative: Pt is alert and oriented; behavior is more calm, friendly, more out and about in the milieu patient is not in distress; dressed in casual attire with adequate hygiene; mood is described as better and affect noticeably brighter and more calm; eye contact avoidant; Speech is normal rate, volume and prosody; no psychomotor agitation present; thought process is organized and goal directed; Thought content is on school, relationships; still with paranoid delusions but no longer feeling and urgency and able to ignore; otherwise pertinent to relevant topics; denies any SI/HI. Positive AH but much diminished. Patients insight and judgment impaired but much improved Diagnostics Vital Signs (24Hr): Vital Signs - 24 hr 12/06/24 20:00 12/07/24 07:55 Temperature 99.8 F 98 F Pulse Rate 110 H 71 Respiratory Rate 16 Blood Pressure 120/72 99/56 L Pulse Oximetry 97 97 Oxygen Delivery Method Room Air Labs 11/29/24 18:09 11/26/24 08:40 Labs: Laboratory Results - last 48 hr 12/06/24 07:45 Absolute Neuts (auto) 4.7 Medications Medications Current Medications Acetaminophen (Acetaminophen 325 Mg Tablet) 650 mg PO Q6H PRN PRN Reason: Headache/Pain, Scale 1-10 Last Admin: 12/04/24 19:21 Dose: 650 mg Al Hydroxide/Mg Hydroxide (Magnesium Hydrox/Alum Hydrox 30 Ml Oral.Susp) 30 ml PO Q6H PRN PRN Reason: Heartburn/Nausea Bupropion HCl (Bupropion Hcl Xl 300 Mg Tab.Er.24h) 300 mg PO DAILY [facility] Last Admin: 12/07/24 08:55 Dose: 300 mg Clozapine (Clozapine 100 Mg Tablet) 100 mg PO BEDTIME [facility]IKI Last Admin: 12/06/24 20:51 Dose: 100 mg Clozapine (Clozapine 25 Mg Tablet) 25 mg PO BID@0900,1400 [facility] Last Admin: 12/07/24 08:56 Dose: 25 mg Hydroxyzine HCl (Hydroxyzine Hcl 25 Mg Tablet) 25 mg PO Q6H PRN PRN Reason: mild anxiety Last Admin: 11/26/24 18:16 Dose: 25 mg Magnesium Hydroxide (Milk Of Magnesia 30 Ml Oral.Susp) 30 ml PO DAILY PRN PRN Reason: Constipation Last Admin: 12/05/24 09:10 Dose: 30 ml Nicotine Polacrilex (Nicotine Polacrilex 2 Mg Gum) 4 mg BUCCAL Q2H PRN PRN Reason: Nicotine Cravings Last Admin: 12/06/24 17:57 Dose: 4 mg Olanzapine (Olanzapine 10 Mg Tablet) 10 mg PO BID [facility] Last Admin: 12/07/24 08:55 Dose: 10 mg Olanzapine (Olanzapine 5 Mg Tablet) 5 mg PO TID PRN PRN Reason: agitation/angst/AH/paranoia Last Admin: 12/06/24 18:15 Dose: 5 mg Sertraline HCl (Sertraline Hcl 100 Mg Tablet) 200 mg PO DAILY [facility] Last Admin: 12/07/24 08:55 Dose: 200 mg Topiramate (Topiramate 25 Mg Tablet) 50 mg PO DAILY [facility] Last Admin: 12/07/24 08:56 Dose: 50 mg Trazodone HCl (Trazodone Hcl 50 Mg Tablet) 50 mg PO BEDTIME MRX1 PRN PRN Reason: Insomnia Last Admin: 11/26/24 21:05 Dose: 50 mg Allergies Allergies Allergy/AdvReac Type Severity Reaction Status Date / Time No Known Allergies Allergy Verified 11/25/24 19:43 Assessment & Plan Assessment & Plan (1) Schizoaffective disorder, depressive type: Status: Acute Code(s): F25.1 - Schizoaffective disorder, depressive type (2) ADHD: Status: Acute Code(s): F90.9 - Attention-deficit hyperactivity disorder, unspecified type (3) Amphetamine use disorder, severe: Status: Acute Code(s): F15.20 - Other stimulant dependence, uncomplicated (4) Autism spectrum disorder: Status: Acute Code(s): F84.0 - Autistic disorder Plan 24-year-old young man who was admitted for safety and stabilization with increase level of paranoia in the face of Adderall abuse. HOSPITAL COURSE: 11/27: Continue current regimen and plans. 11/28 Patient shared extensively about struggles with auditory hallucinations and paranoid ideations. He says he gets paranoid that people are trying to kill him, that his food is poisoned, but parasites in him or blast him with radiation... he does not really think it is paranoia and thinks it is true however he also knows that he has psychotic illness that causes his mind play tricks on him. Patient says he has AH for a long time but he is mostly able to ignore it. He was getting ECT for depression and was being tapered down to where he was getting it twice a week for the past 2 or 3 weeks. He thinks it has helped considerably with his depression. Patient said his treatment got derailed because he is addicted to amphetamines and although he prefers methamphetamine, he will take his family's Adderall and he chance he gets which happened this past week; patient says that it causes him to get a sexual high. He hates this about himself, hates his addiction and very much wants to be sober. Denies other drug or alcohol use. Patient lists the medications he has tried which include Vraylar, Latuda, Abilify, Zyprexa, Haldol, risperidone, Invega/Invega Sustenna, Seroquel, Thorazine. He is not sure the efficacy. Currently patient asked for Zyprexa to be increased saying that it seems to be helping his mind think more clearly; he felt Haldol lowered AH but did not take way paranoia and caused emotional blunting Discussed medication options including Clozaril, reviewing risks/side effects; patient eager to try. Patient has ADHD Patient has autism spectrum disorder Patient has severe depressive episodes and has benefitted from ECT Denies any history of manic type episodes or behaviors. Patient discussed onset of thoughts paraphilia; he patient stress thoughts only which are ego-dystonic 11/29 very paranoid; thinks peer gave him syphyillis; insists to nursing he has parasites in his stool and brings sample in a cup to nursing desk; very anxious. Agrees to start Clozapine; if effective will likely taper off and dc zyprexa 11/30 very paranoid; thinks peer gave him syphyillis; insists to nursing he has parasites in his stool and brings sample in a cup to nursing desk; very anxious. Agrees to start Clozapine; if effective will likely taper off and dc zyprexa -says overall depression remains mostly gone 12/01 doing a little better today and says AH seem to be a little more distant; still has paranoid delusions but says today, they seem less intense; he says he feels less urgency to address them. No med side-effects and agrees to continue clozapine titration. 12/02 Patient reports feeling much better today. AH remain however they are much more distant and easier to ignore; still has thoughts of parasite infection however he says it is less intense not really on his mind very much; also regarding whether not people are conspiring to kill him, he says it is easier to talk himself through and he shares how he reasoned with himself, saying that most people are inherently good , why should I assume the worst? Regarding depression patient said that for the 1st time in a long time he felt a moment of happiness; denies any emotional numbing. Regarding paraphilia patient says that has significantly decreased as well. Discussed titration and patient agrees to increase Clozaril to 100 mg. Patient's improvement is very new and his situation remains fragile; he needs to remain on inpatient unit for continued monitoring and evaluation of medication effectiveness. Will leave medication at Clozaril 100 mg q.h.s. for now and evaluate in a few days; If remains stable and improved will consider tapering off Zyprexa 12/03/2024 Patient seen chart reviewed. Patient asking for a PRN of Haldol which he states is more helpful than p.r.n. olanzapine. EKG ordered some atypical conduction delay. Given a dose of Haldol p.r.n. which patient states helps for internal psychotic agitation. Monitor response 12/05 Patient feels that daytime Clozaril is very helpful in keeping symptoms down and would like to continue. AH and paranoid ideations remain but are diminished and patient is not overly bothered by them. Discussed ADHD symptoms Intuniv, risks/side effects and patient would like to try. Regarding Zyprexa, while wanting to taper off, patient is stable and instead of lowering this medication wants to try Intuniv instead for ADHD 12/06 Continues to find daytime Clozaril quite helpful; will try Intuniv tomorrow. Because of decrease psychotic symptoms, patient feels he has much more ability to focus on things he is interested in and wrote letters to his family, apologizing for past behaviors. Plan: CV Q 15 minute checks Added Clozaril 25 mg b.i.d. at 09:00 and 1300 Continue Clozapine to 100 mg (discussed risks/side-effects and pt wants med trial) continue Zyprexa to 10 mg b.i.d. Add Zyprexa as a p.r.n. at patient's request Continue bupropion Continue Zoloft Will get collateral Patient educated on: diagnosis, medication risk/benefits and therapeutic strategies Informed Consent: understands and further education needed Reason for continued inpatient stay Substantial Risk for: stable for discharge and rapid decompensation Time Spent With Patient Time: Total time managing care of this patient today ____ minutes.
[2024-12-07] MEDS: guanFACINE HCl ER 1 MG TAB.ER.24H PO (11:03)
--- NOTE | 2024-12-07 15:41 | HO.PSYCHPN ---
Subjective Subjective Date of Service: 12/07/24 Reason For Visit: Unspecified Psychosis Interim History: Met with patient; discussed with team Patient reports doing well and that AH is very low and not bothersome; patient says he is hardly thinking about previous paranoid delusions and with his extra time he is able to focus on things that are important to him. Patient says I feel like I have my life back... And is very appreciative for help received and wants to continue with this medication regimen. Denies any medication side effects. Patient also reports that paraphilia concerns have also fully resolved which he thinks is also due to this medication and thinks it was simply part of his psychotic illness. Patient feels ready to return home and continue treatment as an outpatient. Discussed ECT which patient is considering resuming. Diagnostics Vital Signs (24Hr): Vital Signs - 24 hr 12/06/24 20:00 12/07/24 07:55 Temperature 99.8 F 98 F Pulse Rate 110 H 71 Respiratory Rate 16 Blood Pressure 120/72 99/56 L Pulse Oximetry 97 97 Oxygen Delivery Method Room Air Labs 11/29/24 18:09 11/26/24 08:40 Labs: Laboratory Results - last 48 hr 12/06/24 07:45 Absolute Neuts (auto) 4.7 Medications Medications Current Medications Acetaminophen (Acetaminophen 325 Mg Tablet) 650 mg PO Q6H PRN PRN Reason: Headache/Pain, Scale 1-10 Last Admin: 12/04/24 19:21 Dose: 650 mg Al Hydroxide/Mg Hydroxide (Magnesium Hydrox/Alum Hydrox 30 Ml Oral.Susp) 30 ml PO Q6H PRN PRN Reason: Heartburn/Nausea Bupropion HCl (Bupropion Hcl Xl 300 Mg Tab.Er.24h) 300 mg PO DAILY [facility] Last Admin: 12/07/24 08:55 Dose: 300 mg Clozapine (Clozapine 100 Mg Tablet) 100 mg PO BEDTIME [facility]IKI Last Admin: 12/06/24 20:51 Dose: 100 mg Clozapine (Clozapine 25 Mg Tablet) 25 mg PO BID@0900,1400 [facility] Last Admin: 12/07/24 13:11 Dose: 25 mg Guanfacine HCl (Guanfacine Hcl Er 1 Mg Tab.Er.24h) 1 mg PO DAILY [facility] Hydroxyzine HCl (Hydroxyzine Hcl 25 Mg Tablet) 25 mg PO Q6H PRN PRN Reason: mild anxiety Last Admin: 11/26/24 18:16 Dose: 25 mg Magnesium Hydroxide (Milk Of Magnesia 30 Ml Oral.Susp) 30 ml PO DAILY PRN PRN Reason: Constipation Last Admin: 12/05/24 09:10 Dose: 30 ml Nicotine Polacrilex (Nicotine Polacrilex 2 Mg Gum) 4 mg BUCCAL Q2H PRN PRN Reason: Nicotine Cravings Last Admin: 12/06/24 17:57 Dose: 4 mg Olanzapine (Olanzapine 10 Mg Tablet) 10 mg PO BID [facility] Last Admin: 12/07/24 08:55 Dose: 10 mg Olanzapine (Olanzapine 5 Mg Tablet) 5 mg PO TID PRN PRN Reason: agitation/angst/AH/paranoia Last Admin: 12/06/24 18:15 Dose: 5 mg Sertraline HCl (Sertraline Hcl 100 Mg Tablet) 200 mg PO DAILY [facility] Last Admin: 12/07/24 08:55 Dose: 200 mg Topiramate (Topiramate 25 Mg Tablet) 50 mg PO DAILY [facility] Last Admin: 12/07/24 08:56 Dose: 50 mg Trazodone HCl (Trazodone Hcl 50 Mg Tablet) 50 mg PO BEDTIME MRX1 PRN PRN Reason: Insomnia Last Admin: 11/26/24 21:05 Dose: 50 mg Allergies Allergies Allergy/AdvReac Type Severity Reaction Status Date / Time No Known Allergies Allergy Verified 11/25/24 19:43 Assessment & Plan Assessment & Plan (1) Schizoaffective disorder, depressive type: Status: Acute Code(s): F25.1 - Schizoaffective disorder, depressive type (2) ADHD: Status: Acute Code(s): F90.9 - Attention-deficit hyperactivity disorder, unspecified type (3) Amphetamine use disorder, severe: Status: Acute Code(s): F15.20 - Other stimulant dependence, uncomplicated (4) Autism spectrum disorder: Status: Acute Code(s): F84.0 - Autistic disorder Plan 24-year-old young man who was admitted for safety and stabilization with increase level of paranoia in the face of Adderall abuse. HOSPITAL COURSE: 11/27: Continue current regimen and plans. 11/28 Patient shared extensively about struggles with auditory hallucinations and paranoid ideations. He says he gets paranoid that people are trying to kill him, that his food is poisoned, but parasites in him or blast him with radiation... he does not really think it is paranoia and thinks it is true however he also knows that he has psychotic illness that causes his mind play tricks on him. Patient says he has AH for a long time but he is mostly able to ignore it. He was getting ECT for depression and was being tapered down to where he was getting it twice a week for the past 2 or 3 weeks. He thinks it has helped considerably with his depression. Patient said his treatment got derailed because he is addicted to amphetamines and although he prefers methamphetamine, he will take his family's Adderall and he chance he gets which happened this past week; patient says that it causes him to get a sexual high. He hates this about himself, hates his addiction and very much wants to be sober. Denies other drug or alcohol use. Patient lists the medications he has tried which include Vraylar, Latuda, Abilify, Zyprexa, Haldol, risperidone, Invega/Invega Sustenna, Seroquel, Thorazine. He is not sure the efficacy. Currently patient asked for Zyprexa to be increased saying that it seems to be helping his mind think more clearly; he felt Haldol lowered AH but did not take way paranoia and caused emotional blunting Discussed medication options including Clozaril, reviewing risks/side effects; patient eager to try. Patient has ADHD Patient has autism spectrum disorder Patient has severe depressive episodes and has benefitted from ECT Denies any history of manic type episodes or behaviors. Patient discussed onset of thoughts paraphilia; he patient stress thoughts only which are ego-dystonic / very paranoid; thinks peer gave him syphyillis; insists to nursing he has parasites in his stool and brings sample in a cup to nursing desk; very anxious. Agrees to start Clozapine; if effective will likely taper off and dc zyprexa 11/30 very paranoid; thinks peer gave him syphyillis; insists to nursing he has parasites in his stool and brings sample in a cup to nursing desk; very anxious. Agrees to start Clozapine; if effective will likely taper off and dc zyprexa -says overall depression remains mostly gone 12/01 doing a little better today and says AH seem to be a little more distant; still has paranoid delusions but says today, they seem less intense; he says he feels less urgency to address them. No med side-effects and agrees to continue clozapine titration. 12/02 Patient reports feeling much better today. AH remain however they are much more distant and easier to ignore; still has thoughts of parasite infection however he says it is less intense not really on his mind very much; also regarding whether not people are conspiring to kill him, he says it is easier to talk himself through and he shares how he reasoned with himself, saying that most people are inherently good , why should I assume the worst? Regarding depression patient said that for the 1st time in a long time he felt a moment of happiness; denies any emotional numbing. Regarding paraphilia patient says that has significantly decreased as well. Discussed titration and patient agrees to increase Clozaril to 100 mg. Patient's improvement is very new and his situation remains fragile; he needs to remain on inpatient unit for continued monitoring and evaluation of medication effectiveness. Will leave medication at Clozaril 100 mg q.h.s. for now and evaluate in a few days; If remains stable and improved will consider tapering off Zyprexa 12/03/2024 Patient seen chart reviewed. Patient asking for a PRN of Haldol which he states is more helpful than p.r.n. olanzapine. EKG ordered some atypical conduction delay. Given a dose of Haldol p.r.n. which patient states helps for internal psychotic agitation. Monitor response 12/05 Patient feels that daytime Clozaril is very helpful in keeping symptoms down and would like to continue. AH and paranoid ideations remain but are diminished and patient is not overly bothered by them. Discussed ADHD symptoms Intuniv, risks/side effects and patient would like to try. Regarding Zyprexa, while wanting to taper off, patient is stable and instead of lowering this medication wants to try Intuniv instead for ADHD 12/06 Continues to find daytime Clozaril quite helpful; will try Intuniv tomorrow. Because of decrease psychotic symptoms, patient feels he has much more ability to focus on things he is interested in and wrote letters to his family, apologizing for past behaviors. 12/07 Patient reports doing well and that AH is very low and not bothersome; patient says he is hardly thinking about previous paranoid delusions and with his extra time he is able to focus on things that are important to him. Patient says I feel like I have my life back... And is very appreciative for help received and wants to continue with this medication regimen. Denies any medication side effects. Patient also reports that paraphilia concerns have also fully resolved which he thinks is also due to this medication and thinks it was simply part of his psychotic illness. Patient feels ready to return home and continue treatment as an outpatient. Discussed ECT which patient is considering resuming. Patient has significantly improved; he is in a good mood, future oriented and psychotic symptoms are significantly reduced. Patient has improved insight and judgment as well. He is feeling ready to return home where he lives with his parents who are supportive. Patient has establish outpatient support in place. Patient is not in imminent risk for harm to self or others and appropriate to return to the community for treatment. His request for discharge honored. Medication: Clozaril 25 mg b.i.d. at 09:00 and 1300 Continue Clozapine to 100 mg (discussed risks/side-effects and pt wants med trial) continue Zyprexa to 10 mg b.i.d. Add Zyprexa as a p.r.n. at patient's request Continue bupropion Continue Zoloft Will get collateral Patient educated on: diagnosis, medication risk/benefits and ECT Informed Consent: understands Reason for continued inpatient stay Substantial Risk for: stable for discharge Time Spent With Patient Time: Total time managing care of this patient today ____ minutes.
[2024-12-07] MEDS: Nicotine Polacrilex 2 MG GUM 4 MG BUCCAL (18:15)
[2024-12-07] MEDS: OLANZapine 5 MG TABLET PO ×2 (18:15→20:26)
[2024-12-07 19:49] VITALS: BP 129/79; PULSE 112; TEMP 36.1; O2SAT 95
[2024-12-07] MEDS: cloZAPine 100 MG TABLET PO (20:26)
[2024-12-08 08:17] VITALS: BP 116/56; PULSE 86; RESP 16; TEMP 36.9; O2SAT 97
[2024-12-08] MEDS: buPROPion HCl XL 300 MG TAB.ER.24H PO (08:59)
[2024-12-08] MEDS: Sertraline HCL 100 MG TABLET 200 MG PO (08:59)
[2024-12-08] MEDS: guanFACINE HCl ER 1 MG TAB.ER.24H PO (08:59)
[2024-12-08] MEDS: OLANZapine 5 MG TABLET PO (09:00)
[2024-12-08] MEDS: cloZAPine 25 MG TABLET PO (09:00)
[2024-12-08] MEDS: Topiramate 25 MG TABLET 50 MG PO (09:00)
[2024-12-08] MEDS: Nicotine Polacrilex 2 MG GUM 4 MG BUCCAL (09:43)
--- NOTE | 2024-12-08 11:39 | P.DS_ITS ---
DS: Providers Provider Date of Service: 12/08/24 Date of admission: 11/25/24 18:44 Date of discharge: 12/08/24 Primary care physician: Unknown Physician Attending physician on admission: Jd Landers Consults: 11/25/24 19:43 Consult to Hospitalist Routine Comment: Consulting Provider: [facility] [place] [facility] Reason For Exam: medical h&P Attending physician on discharge: Jd Landers DS: Diagnosis Discharge Diagnosis (1) Schizoaffective disorder, depressive type: Status: Acute (2) ADHD: Status: Acute (3) Amphetamine use disorder, severe: Status: Acute (4) Autism spectrum disorder: Status: Acute DS: Medications Discharge Medications Home Medications: Previous Rx's ?Medication ?Instructions ?Recorded bupropion HCl 300 mg 24 hr tablet, 300 mg PO QAM 30 days #30 tabs 12/08/24 extended release clozapine 100 mg tablet 100 mg PO BEDTIME 30 days #30 tabs 12/08/24 clozapine 25 mg tablet 25 mg PO BID@0900,1400 30 days #60 12/08/24 tabs guanfacine 1 mg tablet,extended 1 mg PO DAILY 30 days #30 tabs 12/08/24 release 24 hr nicotine (polacrilex) 4 mg gum 4 mg buccal Q2H 30 days #100 ea 12/08/24 olanzapine 5 mg tablet See Rx Instructions .Route 12/08/24 .COMPLEX depressive disorder #90 tabs sertraline 100 mg tablet 200 mg (2 x 100 mg) PO DAILY 30 12/08/24 days #60 tabs topiramate 50 mg tablet 50 mg PO DAILY 30 days #30 tabs 12/08/24 Mental Status Exam Mental Status Exam Narrative: Pt is alert and oriented; behavior is more calm, friendly, more out and about in the milieu patient is not in distress; dressed in casual attire with adequate hygiene; mood is described as goodr and affect noticeably brighter and more calm; eye contact mildly avoidant; Speech is normal rate, volume and prosody; no psychomotor agitation present; thought process is organized and goal directed; Thought content is on discharge, school, relationships; no paranoid ideations expressed patient reports he is able to ignore; otherwise pertinent to relevant topics; denies any SI/HI. AH significantly reduced and able to be ignored. Patients insight and judgment mildly impaired, much improved and adequate. Data Data Completed and Pending Completed studies during hospitalization [Text1]: 12/06/24 07:45 Absolute Neuts (auto) 4.7 DS: Summary Hospital Course Hospital Course: HPI: Feliciano is a 24-year-old white, single, male who lives with his parents.. He was taken to [facility] through an ambulance. He is undergoing ECT treatment with some memory problems. He states that the CT has been quite helpful with his depression and anxiety. He has received 18 treatments and the plan was to continue with weekly. He has history of methamphetamine use disorder with no recent use . Around being brought to the emergency room he had used 100 mg of his brothers Adderall and was missing for 3-1/2 hours and eventually was found in the garage, having soiled himself. He does have history of pervasive paranoia, delusions. He has ideations of people being after him. His mother had stated that he believes that her is ?bugged?.. He also has history of looking at young girls pictures on the Internet. He has not acted on these preoccupations and desires. He is not currently on any psychot ropic medications but in the past he has been on Wellbutrin, Vraylar, Provigil, Zyprexa, Zoloft, Topamax. Current medications were reviewed and reconciled. He has not been taking the Vraylar but agreed to take olanzapine 5 mg nightly. DX: Patient has ADHD Patient has autism spectrum disorder Patient has severe depressive episodes and has benefitted from ECT Denies any history of manic type episodes or behaviors. Patient discussed onset of thoughts paraphilia? which seemed to be in the context of drug use and/or psychosis; he has thoughts only, which are ego-dystonic HOSPITAL COURSE: On admission, patient was cooperative and engaged in treatment. Initially patient was very paranoid. Patient shared extensively about struggles with auditory hallucinations and paranoid ideations. He says he gets paranoid that people are trying to kill him, that his food is poisoned, that parasites in him or that he gets blasted with radiation... he does not really think it is paranoia and thinks it is true however he also knows that he has psychotic illness that causes his mind play tricks on him. Patient says he has AH for a long time but he is mostly able to ignore it. He was getting ECT for depression and was being tapered down to where he was getting it twice a week for the past 2 or 3 weeks. He thinks it has helped considerably with his depression which he says is currently resolve. Patient said his treatment got derailed because he is addicted to amphetamines and although he prefers methamphetamine, he will take his family's Adderall and he chance he gets which happened this past week; patient says that it causes him to get a sexual high. He hates this about himself, hates his addiction and very much wants to be sober. Denies other drug or alcohol use. Patient was on Zyprexa which was increased. However patient remained exceedingly paranoid; patient thinks peer gave him syphyillis; insists to nursing he has parasites in his stool and brings sample in a cup to nursing desk; very anxious. Discussed medication options including Clozaril, reviewing risks/side effects; patient eager to try. On Clozaril patient very soon improved and felt he was doing a little better. Patient said AH seem to be a little more distant; still has paranoid delusions but says today, they seem less intense and he does not fell an urgency to address them. As clozapine was titrated patient continued to improve; AH became more and more distant and easier to ignore and paranoid delusions, though still present moved to the background of his thoughts and patient was no longer bothered by them. Morning and afternoon doses were added to deal with psychotic symptoms present at these times which proved effective. Patient was in good behavioral and impulse control and appropriate with peers and staff; he became engaged in group activities and interacting with peers. Patient was started on Intuniv which he found helpful for his ADHD symptoms; Zyprexa was also lowered without problem (and patient agreed to discuss this with outpatient provider about lowering further and maybe discontinuing). By the end of admission, patient says he is hardly thinking about paranoid delusions and with his extra time he is able to focus on things that are important to him. Patient says I feel like I have my life back... And is very appreciative for help received and wants to continue with this medication regimen. Denies any medication side effects. Patient also reports that paraphilia concerns have also fully resolved which he thinks is also due to this medication and thinks it was simply part of his psychotic illness. Patient feels ready to return home and continue treatment as an outpatient. . Patient significantly improved and felt ready for discharge. He was in a good mood, future oriented and psychotic symptoms are significantly reduced. Patient has improved insight and judgment as well. He is feeling ready to return home where he lives with his parents who are supportive. Patient has establish outpatient support in place. Patient is not in imminent risk for harm to self or others and appropriate to return to the community for treatment. His request for discharge honored. Medication: Started Clozaril 25 mg b.i.d. at 09:00 and 1300 Started Clozapine to 100 mg Started on Intuniv Lowered to Zyprexa to 5 mg b.i.d. (will work with outpatient provider to see if he can taper off completely) Continued bupropion Continued Zoloft Med trials: Vraylar, Latuda, Abilify, Zyprexa, Haldol, Risperidone, Invega/Invega Sustenna, Seroquel, Thorazine. He is not sure the efficacy. Currently patient asked for Zyprexa to be increased saying that it seems to be helping his mind think more clearly; he felt Haldol lowered AH but did not take way paranoia and caused emotional blunting Time spent discussing smoking cessation with patient: 3 to 10 minutes Status at Discharge Functional status at discharge: independent ambulation Overall status at discharge: patient is back to baseline (improved beyond baseline) Time Spent with Patient Time attestation: Total time managing care of this patient today _40___ minutes. Time spent: Greater than 30 minutes Specific discharge activities: Met with patient; discussed with team; charting; prescriptions Discharge Plan Discharge Anticipated Discharge Date/Time: 12/08/24 12:00 Patient Disposition: Home, Self-Care Discharge Diagnosis: Schizoaffective disorder, depressed type Referrals: LG Mulligan [Other] - 12/13/24 2:00 pm (Hospital discharge appointment with therapist) Dr. Donald Donis (psychiatry) [Other] - 12/16/24 9:00 am (Hospital discharge appointment with outpatient psychiatric provider) Physician,Unknown J [Primary Care Provider] - 1 Week (please contact your PCP to set up follow-up appt within one week. If you do not have a PCP please contact: [facility] [address], [place] [phone]) Discharge Medications: New guanfacine 1 mg Tablet Extended Release 24 Hr 1 mg PO DAILY 30 Days Qty: 30 0RF nicotine (polacrilex) 4 mg gum 4 mg buccal Q2H 30 Days Qty: 100 0RF clozapine 100 mg Tablet 100 mg PO BEDTIME 30 Days Qty: 30 0RF clozapine 25 mg Tablet 25 mg PO BID@0900,1400 30 Days Qty: 60 0RF Continued sertraline 100 mg tablet 200 mg PO DAILY 30 Days Qty: 60 0RF bupropion HCl 300 mg tablet extended release 24 hr 300 mg PO QAM 30 Days Qty: 30 0RF topiramate 50 mg tablet 50 mg PO DAILY 30 Days Qty: 30 0RF Changed olanzapine 5 mg tablet See Rx Instructions .ROUTE .COMPLEX Qty: 90 0RF Rx Instructions: take 1 tab bID; may take additional tab daily as needed for breakthrough symptoms Discontinued Vraylar 1.5 mg capsule 1.5 mg PO DAILY Discharge Orders: Discharge Order (Routine); Ordered 12/08/24 Ordered By: Jd Landers Diet: Regular diet Activity on Discharge: As tolerated Stand Alone Forms: Patient Portal Discharge page, Community Support Print Language: Kiswahili Care Plan Goals: Maintain mood and safe behaviors Take medications as prescribed Continue to pursue sobriety Practice coping skills Continue with outpatient providers and reach out to them as needed Health Concerns: Mood stability and behaviors Sobriety Plan of Treatment: Follow up with your PCP, psychiatric provider and other outpatient providers regarding above concerns Take medications as prescribed Assessment: Risk assessment at time of discharge:? Patient was interviewed prior to discharge and found to be fully oriented and without any SI or HI. Patient has improved insight and judgment and wants to continue treatment. Patient is not in imminent risk of harm to self or others and has a safety plan that includes presenting to the closest ER or calling 911 if feeling unsafe.? Patient has been observed closely by nursing and unit staff throughout admission; patient has not engaged in any behaviors that suggest dangerousness to self or others and has demonstrated appropriate behaviors and impulse control Discharge Date/Time: 12/08/24 12:53
== END 2024-12-08 12:53 | disposition home or self-care (01) | DRG 885 ==
PROVIDERS: Social Worker; Admitting Provider Psychiatry & Neurology Psychiatry; Visit Provider Psychiatry & Neurology Psychiatry
DX: F25.1 Schizoaffective disorder, depressive type (principal); F15.20 Other stimulant dependence, uncomplicated; F90.9 Attention-deficit hyperactivity disorder, unspecified type; F84.0 Autistic disorder; F17.210 Nicotine dependence, cigarettes, uncomplicated; Z71.6 Tobacco abuse counseling; Z79.899 Other long term (current) drug therapy
CPT/HCPCS: 36415; 80053; 80061; 82607; 82746; 83036; 83735; 84443; 85025; 85048; 93005

== ENCOUNTER → 2024-11-25 18:44 | Outpatient (BNV) | payer OTHER, SELFPAY | PROVIDERS: Admitting Provider Psychiatry & Neurology Psychiatry; Visit Provider Psychiatry & Neurology Psychiatry | DX: F25.1 Schizoaffective disorder, depressive type (principal); F15.20 Other stimulant dependence, uncomplicated; F90.9 Attention-deficit hyperactivity disorder, unspecified type; F84.0 Autistic disorder | CPT/HCPCS: 99231 ==

== ENCOUNTER → 2024-11-25 18:44 | Outpatient (BNV) | payer MEDICAID, SELFPAY | PROVIDERS: Admitting Provider Psychiatry & Neurology Psychiatry; Visit Provider Nurse Practitioner Family | DX: F17.290 Nicotine dependence, other tobacco product, uncomplicated (principal) | CPT/HCPCS: 99223 ==

== ENCOUNTER → 2024-11-25 18:44 | Outpatient (BNV) | payer OTHER, SELFPAY | PROVIDERS: Admitting Provider Psychiatry & Neurology Psychiatry; Visit Provider Psychiatry & Neurology Psychiatry | DX: F25.1 Schizoaffective disorder, depressive type (principal); F15.20 Other stimulant dependence, uncomplicated; F90.9 Attention-deficit hyperactivity disorder, unspecified type; F84.0 Autistic disorder | CPT/HCPCS: 90792; 99231; 99232 ==